=== PATIENT | male | born 1935 | race Caucasian/White ===

== ENCOUNTER 2020-09-02 21:57 | Inpatient (IN) | payer OTHER, SELFPAY ==
[~2020-09-02] VITALS: Ht 172.7 cm; Wt 87.5 kg
--- NOTE | 2020-09-02 22:00 | NUR ---
Placed in room 01 . Placed on ekg monitor tech, blood pressure machine and pulse oximeter. To gown for exam. Side rails up.
--- NOTE | 2020-09-02 22:00 | NUR ---
ER Dr. Black at bedside examining patient. Received patient to ER w/ c/o sob. Patient recently discharged from [facility] for similar c/o. Patient arrived via EMS w/ nrb noted pox of 100%. Introduced self to patient, positioned for comfort and safety w/ bed to low position sr up. continue to monitor. patient h/o ventricular paced pacemaker.
[2020-09-02 22:01] VITALS: BP_SYST 164
[2020-09-02] MEDS ORDERED: ALBU2.5V7 INH (22:19)
[2020-09-02] MEDS ORDERED: AMPI1VIA IJ (22:19)
[2020-09-02] MEDS ORDERED: WARF4TAB72 PO (22:19)
[2020-09-02] MEDS ORDERED: ASCO500C18 PO (22:19)
[2020-09-02] MEDS ORDERED: ROCPM1 IV (22:19)
--- NOTE | 2020-09-02 22:19 | NUR ---
Medication reconciliation completed with information provided by patient's family . Any prior medication reconciliation on file was reviewed and corrected.
[2020-09-02 22:48] LABS: BASOPHILS # (AUTO) 0.1 K/uL (0.0-0.2); BASOPHILS % (AUTO) 1.6 % (0.0-2.0); EOSINOPHILS % (AUTO) 0.7 % (0.0-4.0); HEMATOCRIT 30.8 % (36-54); HEMOGLOBIN 9.5 g/dL (14.0-18.0); LYMPHOCYTES # (AUTO) 0.5 K/uL (1.0-5.5); LYMPHOCYTES % (AUTO) 7.8 % (20.5-51.5); MEAN CORPUSCULAR HEMOGLOBIN 25 pg (27-31); MEAN CORPUSCULAR HGB CONC 31 % (32-36); MEAN CORPUSCULAR VOLUME 82 fL (79.0-98.0); MONOCYTES # (AUTO) 0.8 K/uL (0.0-1.0); MONOCYTES % (AUTO) 13.9 % (1.7-9.3); NEUTROPHILS # (AUTO) 4.7 K/uL (1.8-7.7); PLATELET COUNT (AUTO) 201 K/uL (130-430); RED BLOOD CELL COUNT(AUTO) 3.78 MIL/uL (4.2-6.2); RED CELL DISTRIBUTION WIDTH 17.7 % (9.0-15.0); WHITE BLOOD COUNT (AUTO) 6.1 K/uL (4.8-10.8)
[2020-09-02 23:03] LABS: ANION GAP 0 (5-15); CALCIUM 9.5 mg/dL (8.4-11.0); CHLORIDE 100 mmol/L (98-107); CREATININE 0.89 mg/dL (0.55-1.30); GLUCOSE 167 mg/dL (70-99); POTASSIUM 4.1 mmol/L (3.5-5.1); SODIUM SERUM 145 mmol/L (136-145); UREA NITROGEN, BLOOD 10 mg/dL (8-21)
[2020-09-02] MEDS ORDERED: cefTRIAXone 2 GM VIAL ONE (23:03)
--- NOTE | 2020-09-02 23:08 | NUR ---
patient medicated as ordered. Will observe for any adverse reaction. Bed to low position sr up, continue to monitor.
[2020-09-02 23:09] LABS: INR 1.5 (0.80-1.20); PROTHROMBIN TIME 15.6 SECS (9.5-12.5)
[2020-09-02 23:10] LABS: ALANINE AMINOTRANSFERASE 17 U/L (12-78); ALBUMIN 3.1 g/dL (3.4-4.8); ASPARTATE AMINOTRANSFERASE 18 U/L (10-37); LACTATE DEHYDROGENASE 178 U/L (85-227); TOTAL BILIRUBIN 0.5 mg/dL (0.0-1.0)
--- NOTE | 2020-09-02 23:25 | NUR ---
[facility] [phone]
[2020-09-03] VITALS (24 sets, daily range): BP systolic 107–183
--- NOTE | 2020-09-03 00:19 | NUR ---
Patient will be admitted to care of [facility]. Admitted to tele unit. Will go to room 122B. Belongings list completed. Complete and up to date summary report printed. SBAR report to be given at bedside with opportunity for questions.
[2020-09-03] MEDS ORDERED: ACETAMINOPHEN 325 MG TABLET PO PRN (00:30)
[2020-09-03] MEDS ORDERED: ALBUTEROL SULFATE 0.083% 2.5 MG/3 ML VIAL.NEB INH PRN ×2 (00:30→00:45)
[2020-09-03] MEDS ORDERED: NALOXONE HCL 0.4 MG/ML AMP (NARCAN) IVP PRN (00:30)
--- NOTE | 2020-09-03 00:35 | NUR ---
ADMISSION NOTE Received patient from ER via gurney. Patient admitted with diagnosis of PNA. Patient is awake, alert, oriented X 4. Patient oriented to hospital room, call light, toileting, pain management and safety-teach back done. Patient informed that KRISTIE will be nurse and that their room number is 122B. Personal belongings checked and Belongings List documented. Call light within reach.
--- NOTE | 2020-09-03 02:00 | NUR ---
TRANSFER: RECEIVED PT FROM [facility], REPORT GIVEN USING SBAR REPORT FROM RN. ALL CARE ASSUMED.
--- NOTE | 2020-09-03 02:00 | NUR ---
TRANSFERRED ICU, GIVEN REPORT TO ICU NURSE
[2020-09-03] MEDS ORDERED: AZITHROMYCIN 500 MG/VIAL (ZITHROMAX) IV ONE (03:20)
[2020-09-03] MEDS: AZITHROMYCIN 500 MG in NS 250 ML IV SCH (03:29)
--- NOTE | 2020-09-03 04:00 | NUR ---
BIPAP: PT PUT ON BIPAP PER DR ORDERS, PT TOLERATING WELL. WILL CONTINUE TO MONITOR.
--- NOTE | 2020-09-03 07:00 | NUR ---
CLOSING NOTE: REPORT GIVEN TO DAY SHIFT RN USING SBAR REPORTING.
--- NOTE | 2020-09-03 07:20 | NUR ---
LAB AT BEDSIDE: LAB AT BEDSIDE, PATIENT TOLERATING WELL. RESULTS PENDING.
--- NOTE | 2020-09-03 07:20 | NUR ---
OPENING NOTE: REPORT RCVD AT BEDSIDE VIA SBAR FORMAT, PATIENT IN NO ACUTE DISTRESS AND OR DISCOMFORT. ALL SAFETY PRECAUTIONS IN PLACE.
--- NOTE | 2020-09-03 07:32 | NUR ---
MD THOMAS: MD AT BEDSIDE, VERBAL REPORT GIVEN. ORDERS RC'VD TO WEAN BIPAP, RT AWARE.
--- NOTE | 2020-09-03 07:37 | NUR ---
NEW ORDERS FROM MD THOMAS: NEW ORDERS PLACED INTO EMAR BY MD, PATIENT EDUCATED ON CHANGES AND HAS VERBALIZED UNDERSTANDING.
[2020-09-03] MEDS ORDERED: *LOVENOX 1MG/KG Q12H/PHARMACY XX PRN (07:45)
[2020-09-03] MEDS: IPRATROPIUM/ALBUTEROL SULFATE 3 ML AMPUL.NEB (DUONEB) INH SCH ×5 (07:45→23:00)
[2020-09-03 08:03] LABS: INR 1.5 (0.80-1.20); PROTHROMBIN TIME 15.5 SECS (9.5-12.5)
[2020-09-03 08:11] LABS: BASOPHILS % (AUTO) 0.6 % (0.0-2.0); EOSINOPHILS % (AUTO) 0.9 % (0.0-4.0); HEMOGLOBIN 8.3 g/dL (14.0-18.0); LYMPHOCYTES # (AUTO) 0.6 K/uL (1.0-5.5); LYMPHOCYTES % (AUTO) 12.3 % (20.5-51.5); MEAN CORPUSCULAR HEMOGLOBIN 25 pg (27-31); MEAN CORPUSCULAR HGB CONC 31 % (32-36); MEAN CORPUSCULAR VOLUME 82 fL (79.0-98.0); MONOCYTES % (AUTO) 19.4 % (1.7-9.3); NEUTROPHILS # (AUTO) 3.5 K/uL (1.8-7.7); NEUTROPHILS % (AUTO) 66.8 % (40.0-70.0); PLATELET COUNT (AUTO) 166 K/uL (130-430); RED BLOOD CELL COUNT(AUTO) 3.28 MIL/uL (4.2-6.2); RED CELL DISTRIBUTION WIDTH 17.6 % (9.0-15.0); WHITE BLOOD COUNT (AUTO) 5.2 K/uL (4.8-10.8)
--- NOTE | 2020-09-03 08:12 | NUR ---
ABG RESULTS: SPOKE WITH MD THOMAS IN PERSON, MD AWARE OF ABG RESULTS, MD REQUESTED RT TO KEEP PATIENT ON BIPAP ALLOWING TIMES FOR REST TO EAT PO AND THEN PLACE BACK ONTO BIPAP.
--- NOTE | 2020-09-03 08:14 | NUR ---
RT: RT AWARE OF NEW ORDER FROM DR. THOMAS, WILL PLACE ORDER, PATIENT EDUCATED AND AWARE.
[2020-09-03 08:15] LABS: ALANINE AMINOTRANSFERASE 9 U/L (12-78); ALBUMIN 2.6 g/dL (3.4-4.8); ASPARTATE AMINOTRANSFERASE 13 U/L (10-37); CALCIUM 8.3 mg/dL (8.4-11.0); CHLORIDE 102 mmol/L (98-107); CREATININE 0.78 mg/dL (0.55-1.30); GLUCOSE 114 mg/dL (70-99); POTASSIUM 4.1 mmol/L (3.5-5.1); SODIUM SERUM 146 mmol/L (136-145); TOTAL BILIRUBIN 0.2 mg/dL (0.0-1.0); UREA NITROGEN, BLOOD 9 mg/dL (8-21)
[2020-09-03 08:19] LABS: ANION GAP < 3 (5-15)
--- NOTE | 2020-09-03 08:36 | NUR ---
0826 PT TAKEN OFF BIPAP PLACED ON 4L NC PER DR. DE LEON TO EAT.HR70 SAT 95%. Addendum: 09/03/20 at 0838 by Dinorah Schuler RT Amended: Links added.
--- NOTE | 2020-09-03 08:45 | NUR ---
FAMILY: DR. THOMAS SPOKE WITH DAUGHTER WINIFRED OVER PHONE, UPDATE GIVEN AND ALL QUESTIONS ANSWERED.
[2020-09-03] MEDS ORDERED: WARFARIN SODIUM 4 MG TABLET PO SCH (09:00)
--- NOTE | 2020-09-03 09:35 | NUR ---
BREAKFAST: PATIENT HAS GOOD APPETITE, 50% PO CONSUMED. PATIENT REMAINS ELEVATED IN BED FOR COMFORT, WATCHING TV. DENIES PAIN AND OR DISCOMFORT AT THIS TIME. ALL SAFETY PRECAUTIONS IN PLACE.
--- NOTE | 2020-09-03 09:36 | NUR ---
Nutrition Update Villa Scale 15 noted. Pt admitted for SOB, pneumonia. Diet: cardiac BMI: 29.4 kg/m2 RD to follow per nutrition care standards.
--- NOTE | 2020-09-03 09:45 | NUR ---
DR. WRIGHT: KYLE AT BEDSIDE, VERBAL REPORT GIVEN.
[2020-09-03] MEDS: methylPREDNISolone SOD SUCC/PF 62.5 MG/ML VIAL IVP SCH ×2 (09:48→21:15)
[2020-09-03] MEDS ORDERED: FUROSEMIDE 20 MG/2 ML VIAL ONE (09:53)
[2020-09-03] MEDS: FUROSEMIDE 20 MG/2 ML VIAL IVP SCH (09:54)
[2020-09-03] MEDS: ENOXAPARIN SODIUM 80 MG/0.8 ML SYRINGE SUBCUT SCH ×2 (09:57→21:15)
--- NOTE | 2020-09-03 10:01 | NUR ---
DR. WRIGHT CALLED FAMILY: CALLED DAUGHTER WINIFRED AND VERBAL UPDATE GIVEN. ALL QUESTIONS ANSWERED
--- NOTE | 2020-09-03 10:19 | NUR ---
Carmel Goldsmith aware of consult
--- NOTE | 2020-09-03 10:20 | NUR ---
Called Dr. Linder with a consult, spoke with Claire from doctors office
--- NOTE | 2020-09-03 11:18 | NUR ---
DAUGHTER (DEWAYNE) DAUGHTER CALLED UNIT AND VERBALIZED SHE HAS THE PATIENTS DPOA DOCUMENTATION AND HAS ALSO REQUESTED THE PHYSICIANS CALL HER TO DISCUSS CODE STATUS. PER DEWAYNE, PATIENT VERBALIZED PRIOR TO BEING ADMITTED HE REQUESTS TO BE DNR STATUS. WILL MAKE MD AWARE.
--- NOTE | 2020-09-03 12:02 | NUR ---
RN ROUNDS: NEW LINENS PLACED, NEW GOWN, PATIENT HAD LARGE INCONTINENCE VOID WITH MED BM. CALL LIGHT IN REACH DEMONSTRATED USE, PATIENT DEMONSTRATED PROPER USE OF CALL LIGHT SYSTEM. ALL SAFETY PRECAUTIONS IN PLACE, BED IN LOWEST LOCKED POSITION.
--- NOTE | 2020-09-03 12:15 | NUR ---
DR. NOVA: AT BEDSIDE, VERBAL REPORT GIVEN, ALL QUESTIONS ANSWERED.
--- NOTE | 2020-09-03 12:24 | NUR ---
BRIDGE DESIGN ENGINEER CONVERSATION: SPOKE WITH BRIDGE DESIGN ENGINEER R/T OBTAINING PATIENTS ADVANCE DIRECTIVE, PATIENTS DAUGHTER (DEWAYNE) STATES PATIENT HAS ONE. BRIDGE DESIGN ENGINEER TO REACH OUT TO FAMILY TO DETERMINE FACTS.
--- NOTE | 2020-09-03 12:45 | NUR ---
DR. NOVA SIGNED DNR: DNR HAS BEEN SIGNED, DR. NOVA HAS SPOKEN TO FAMILY AND DISCUSSED, PER DAUGHTERS WINIFRED AND DEWAYNE BOTH HAVE AGREED TO CODE STATUS CHANGE. CHARGE AWARE.
--- NOTE | 2020-09-03 13:27 | NUR ---
SS notes/Advanced Directive: SIDE DOOR MAN received a call from Lena POLANCO regarding pt's surrogate decision maker/advanced directive. SIDE DOOR MAN phoned pt's dtr Margaret who stated that patient has an advanced directive and pt's spouse, Sara Butt (p:[phone]) is the surrogate decision maker. SIDE DOOR MAN informed Margaret that RN's received a call from pt's other dtr Venecia (p:[phone]) claiming that she is pt's POA. Per Margaret, she will try to obtain both and provide the hospital with copies. Per Margaret, they are in a good relationship amongst each other and should be in the same page when it comes to decision making. Per Margaret, Sara has slight dementia and Margaret is the spokesperson for the family. Demographic info and Lena POLANCO updated.
--- NOTE | 2020-09-03 15:29 | NUR ---
FAMILY: DEWAYNE CALLED UNIT, VERBAL UPDATE GIVEN, ALL QUESTIONS ANSWERED, NO CONCERNS AT THIS TIME.
--- NOTE | 2020-09-03 17:00 | NUR ---
POA: FAMILY DROPPED OFF COPY OF POA, PLACED INTO CHART. CHARGE AWARE.
--- NOTE | 2020-09-03 17:30 | NUR ---
DINNER CONSUMED: PATIENT CONSUMED 100%OF DINNER PO, NO SIGNS OF ASPIRATION. HOB REMAINS ELEVATED, PATIENT CALM AND WATCHING TC. DENIES PAIN AND OR DISCOMFORT.
--- NOTE | 2020-09-03 19:19 | NUR ---
CLOSING NOTE: REPORT GIVEN VIA SBAR FORMAT TO ONCOMING RN. ALL CARES ENDORSED.
[2020-09-03] MEDS: DEXTROSE IV SCH (23:00)
[2020-09-03] MEDS: CEFTRIAXONE SOD IV SCH (23:00)
[2020-09-03] MEDS ORDERED: cefTRIAXone 1 GM IVPB PREMIX 50 ML IV SCH (23:00)
[2020-09-03] MEDS ORDERED: cefTRIAXone 2 GM IVPB PREMIX 50 ML IV SCH (23:00)
[2020-09-04] VITALS (14 sets, daily range): BP systolic 136–169
[2020-09-04] MEDS: AZITHROMYCIN 500 MG in NS 250 ML IV SCH (01:14)
[2020-09-04] MEDS: IPRATROPIUM/ALBUTEROL SULFATE 3 ML AMPUL.NEB (DUONEB) INH SCH ×6 (03:00→23:40)
[2020-09-04 06:42] LABS: BASOPHILS % (AUTO) 0.1 % (0.0-2.0); HEMATOCRIT 26.6 % (36-54); HEMOGLOBIN 8.3 g/dL (14.0-18.0); LYMPHOCYTES # (AUTO) 0.3 K/uL (1.0-5.5); LYMPHOCYTES % (AUTO) 11.6 % (20.5-51.5); MEAN CORPUSCULAR HEMOGLOBIN 26 pg (27-31); MEAN CORPUSCULAR HGB CONC 31 % (32-36); MEAN CORPUSCULAR VOLUME 82 fL (79.0-98.0); MONOCYTES # (AUTO) 0.1 K/uL (0.0-1.0); NEUTROPHILS # (AUTO) 2.1 K/uL (1.8-7.7); NEUTROPHILS % (AUTO) 83.3 % (40.0-70.0); PLATELET COUNT (AUTO) 176 K/uL (130-430); RED BLOOD CELL COUNT(AUTO) 3.25 MIL/uL (4.2-6.2); RED CELL DISTRIBUTION WIDTH 17.8 % (9.0-15.0); WHITE BLOOD COUNT (AUTO) 2.5 K/uL (4.8-10.8)
[2020-09-04 07:01] LABS: ALANINE AMINOTRANSFERASE 13 U/L (12-78); ALBUMIN 2.8 g/dL (3.4-4.8); ASPARTATE AMINOTRANSFERASE 12 U/L (10-37); CALCIUM 8.4 mg/dL (8.4-11.0); CHLORIDE 102 mmol/L (98-107); CREATININE 0.76 mg/dL (0.55-1.30); GLUCOSE 173 mg/dL (70-99); POTASSIUM 4.5 mmol/L (3.5-5.1); SODIUM SERUM 143 mmol/L (136-145); TOTAL BILIRUBIN 0.4 mg/dL (0.0-1.0); UREA NITROGEN, BLOOD 9 mg/dL (8-21)
--- NOTE | 2020-09-04 07:30 | NUR ---
Received patient and report from lieutenant shift supervisor. Patient in bed with side rails x 3 up. Call light with in reach.
[2020-09-04 07:41] LABS: ANION GAP < 3 (5-15)
[2020-09-04] MEDS ORDERED: FUROSEMIDE 20 MG/2 ML VIAL ONE (09:18)
[2020-09-04] MEDS: FUROSEMIDE 20 MG/2 ML VIAL IVP SCH (09:26)
[2020-09-04] MEDS: ENOXAPARIN SODIUM 80 MG/0.8 ML SYRINGE SUBCUT SCH ×2 (09:27→21:34)
[2020-09-04] MEDS: methylPREDNISolone SOD SUCC/PF 62.5 MG/ML VIAL IVP SCH ×2 (09:27→21:32)
[2020-09-04] MEDS: MORPHINE 2 MG/ML INJ. SYRINGE IVP PRN ×2 (09:28→14:23)
--- NOTE | 2020-09-04 09:30 | NUR ---
Paged MD Martinez and reported latest ABGs and critical lab result Carbon dioxide 43, ordered for patient to stay on nasal cannula during the day but keep bipap on at night. Also reported patient has had difficulty urinating with history of prostate issues and stating "feels like peeing marbles." MD Martinez approved Borja catheter insertion.
--- NOTE | 2020-09-04 09:52 | NUR ---
Bladder scan result 45 ml. No distended or firm abdomen noted.
--- NOTE | 2020-09-04 10:41 | NUR ---
CISNEROS 16 fr cisneros cath inserted. Pt tolerated well. 200ml clear yellow urine noted.
--- NOTE | 2020-09-04 11:01 | NUR ---
MD Khan at bedside assessing patient, stated will put orders for patient to transfer to tele unit.
--- NOTE | 2020-09-04 13:13 | NUR ---
Called MD Linder and reported systolic has ranged in the 150s to 160s with last blood pressure 153/70, no new orders.
--- NOTE | 2020-09-04 15:45 | NUR ---
Received report from SHERRI German (ICU) for continuity of care
--- NOTE | 2020-09-04 15:53 | NUR ---
Patient transferred to room 122 A via bed in tele unit with assistance from RT on 2 Liters Nasal Cannula. Patient placed on tele unit's portable continuos tele monitoring. Report and patient with personal belongings endorsed to [facility] nurse. Daughter Margaret made aware of transfer. Endorsed to receiving nurse to request stool softener as patient is stating its hard to go even though patient had two bowel movements today.
--- NOTE | 2020-09-04 15:55 | NUR ---
Opening Notes Patient is awake, alert and oriented x4. No resp distress noted. Pt is noted with minimal abdominal breathing at this time. Pt remains on continuous oxygen via NC @ 2 LPM, tolerating well at this time. Pt denies any cough or SOB at this time. Pt denies any pain. IV site noted on left hand, 20 gauge intact. PICC LINE on GRACE, dressing clean and dry, flushing well. Borja catheter in place at this time, draining by gravity. Pt is noted with minimal bleeding at FC insertion site. Pt was oriented to the room and taught proper use of the call light. Pt was successful in return demonstration of call light. All needs met at this time. Safety and fall precautions in place. Bed in lowest position, alarm on, locked. Will continue to monitor.
--- NOTE | 2020-09-04 16:34 | NUR ---
Venecia (daughter/DPOA) called and requested to talk to MD Martinez, informed MD Martinez already did rounds and will endorse to have MD Martinez call Venecia tomorrow. Endorsed to [facility] nurse to endorse to have MD Martinez call daughter Venecia ([phone]) once arrives on site.
--- NOTE | 2020-09-04 19:30 | NUR ---
OPENING NOTE: Received report from dayshift nurse. Patient is laying in bed, alert and oriented and is not having any s/s of distress or discomfort. Borja is draining to gravity with yellow urine. PICC line noted on GRACE and IV on left wrist with dry and intact dressing Patient is on 2L O2 via NC, tolerating well and with normal breathing pattern. Ensured all safety precautions. Bed is locked and in the lowest positions. Call light within reach.
--- NOTE | 2020-09-04 21:30 | NUR ---
MEDICATION ADMINISTRATION: Patient is resting in bed, in stable condition. Medications were administered as ordered by , pt tolerated well.
[2020-09-05] MEDS: CEFTRIAXONE SOD IV SCH ×2 (00:13→22:10)
[2020-09-05] MEDS: DEXTROSE IV SCH ×2 (00:13→22:10)
[2020-09-05] MEDS: AZITHROMYCIN 500 MG in NS 250 ML IV SCH (01:02)
[2020-09-05 01:06] VITALS: BP_SYST 166
--- NOTE | 2020-09-05 01:45 | NUR ---
PAGED DR. LINDER FOR ELEVATED BP AND DECREASED HR I informed MD that pt's BP has been 160/85 and 166/80 with recent decrease in HR in the 50's but some episodes of HR in the 40's. Per Dr. Linder will wait until morning to assess patient. No change in orders at this time.
[2020-09-05] MEDS: IPRATROPIUM/ALBUTEROL SULFATE 3 ML AMPUL.NEB (DUONEB) INH SCH ×6 (03:00→19:37)
--- NOTE | 2020-09-05 03:25 | NUR ---
RN ROUNDS: Patient is laying in bed and appears to be asleep with no s/s of distress or discomfort. Will continue to monitor patient.
--- NOTE | 2020-09-05 07:50 | NUR ---
CLOSING NOTES: Patient is laying in bed, alert and oriented and in stable condition. Borja is draining to gravity with yellow urine. PICC line on GRACE with dry dressing and IV on left wrist with dry and intact dressing. Patient is on 2L O2 via NC, tolerating well and with normal breathing pattern. Ensured all safety precautions. Bed is locked and in the lowest positions. Call light within reach. All needs were met throughout shift. Endorsed to dayshift nurse.
[2020-09-05 08:00] VITALS: BP_SYST 176
--- NOTE | 2020-09-05 08:00 | NUR ---
Opening note: Pt awake, alert and verbally responsive. AOx4. Denies pain or discomfort, no acute distress noted. Asked to have his bipap taken off, RT came and took bipap off and put him on 2L NC. Respirations even and unlabored. IV L hand 20g and PICC GRACE, both intact, no redness or swelling noted. Borja intact, draining to gravity. Bed in low position, call light within reach, bed alarm on, WCTM.
[2020-09-05] MEDS ORDERED: FUROSEMIDE 20 MG/2 ML VIAL ONE (08:19)
[2020-09-05] MEDS: methylPREDNISolone SOD SUCC/PF 62.5 MG/ML VIAL IVP SCH ×2 (08:31→20:49)
[2020-09-05] MEDS: FUROSEMIDE 20 MG/2 ML VIAL IVP SCH (08:32)
[2020-09-05] MEDS: ENOXAPARIN SODIUM 80 MG/0.8 ML SYRINGE SUBCUT SCH ×2 (08:33→20:55)
--- NOTE | 2020-09-05 10:00 | NUR ---
Informed Dr. Marcano of pt having high BP. He said after 1600 vitals to call if SBP is over 150.
[2020-09-05 11:07] VITALS: BP_SYST 146
--- NOTE | 2020-09-05 12:41 | NUR ---
CM note: faxed DC to snf order to [facility]/[employer] fax # [phone]
[2020-09-05 16:00] VITALS: BP_SYST 183
[2020-09-05] MEDS ORDERED: HYDROCHLOROTHIAZIDE 25 MG TABLET (HCTZ) PO ONE (16:15)
--- NOTE | 2020-09-05 16:17 | NUR ---
Called Dr. Marcano to inform him pt BP is 183/110, he ordered medications. Will carry out orders.
--- NOTE | 2020-09-05 16:21 | NUR ---
P.T. NOTES P.T. EVAL COMPLETED; REFER TO EVAL FOR DETAILS; O2 SAT ROOM AIR=80s, 2L=89-90% W/ EXERTION, 97% AT REST.
[2020-09-05] MEDS ORDERED: cloNIDine HCL 0.1 MG TABLET ONE ×2 (16:24→22:56)
[2020-09-05] MEDS: cloNIDine HCL 0.1 MG TABLET PO PRN ×2 (16:26→22:56)
--- NOTE | 2020-09-05 19:10 | NUR ---
OPENING NOTES PATIENT RESTING, NO SIGNS OF ACUTE RESPIRATORY DISTRESS NOTED. IV SITE PATENT, DRESSINGS C/D/I. FALL, ASPIRATION, SAFETY, AND RESPIRATORY PRECAUTIONS IN PLACE. CALL LIGHT WITHIN REACH, PATIENT DEMONSTRATES PROPER USAGE OF CALL LIGHT. PLAN OF CARE DISCUSSED WITH PATIENT. ALVAREZ CATHETER INTACT, NO KINKS, NO LOOPS, BAG NOT TOUCHING THE FLOOR. WILL CONTINUE TO MONITOR.
[2020-09-05 20:00] VITALS: BP_SYST 164
[2020-09-06] VITALS: BP_SYST 156
[2020-09-06] MEDS: IPRATROPIUM/ALBUTEROL SULFATE 3 ML AMPUL.NEB (DUONEB) INH SCH ×7 (00:03→23:47)
[2020-09-06] MEDS: AZITHROMYCIN 500 MG in NS 250 ML IV SCH ×2 (00:37→23:33)
--- NOTE | 2020-09-06 01:51 | NUR ---
PATIENT CONNECTED TO BIPAP, NO RESPIRATORY DISTRESS NOTED. WILL CONTINUE TO MONITOR.
[2020-09-06 06:20] LABS: HEMATOCRIT 27.2 % (36-54); HEMOGLOBIN 8.6 g/dL (14.0-18.0); LYMPHOCYTES # (AUTO) 0.3 K/uL (1.0-5.5); LYMPHOCYTES % (AUTO) 6.4 % (20.5-51.5); MEAN CORPUSCULAR HEMOGLOBIN 26 pg (27-31); MEAN CORPUSCULAR HGB CONC 32 % (32-36); MEAN CORPUSCULAR VOLUME 81 fL (79.0-98.0); MONOCYTES # (AUTO) 0.4 K/uL (0.0-1.0); MONOCYTES % (AUTO) 9.3 % (1.7-9.3); NEUTROPHILS # (AUTO) 3.7 K/uL (1.8-7.7); NEUTROPHILS % (AUTO) 84.3 % (40.0-70.0); PLATELET COUNT (AUTO) 180 K/uL (130-430); RED BLOOD CELL COUNT(AUTO) 3.37 MIL/uL (4.2-6.2); RED CELL DISTRIBUTION WIDTH 18.2 % (9.0-15.0); WHITE BLOOD COUNT (AUTO) 4.4 K/uL (4.8-10.8)
--- NOTE | 2020-09-06 06:45 | NUR ---
CLOSING NOTES PATIENT RESTING, NO SIGNS OF ACUTE RESPIRATORY DISTRESS NOTED. IV SITES PATENT, DRESSINGS C/D/I. FALL, ASPIRATION, SAFETY, AND RESPIRATORY PRECAUTIONS IN PLACE THROUGHOUT SHIFT. CALL LIGHT WITHIN REACH, BED ALARM ON, BED AT LOWEST POSITION, BED LOCKED, ALVAREZ CATHETER PATENT, NO KINKS, NO LOOPS, BAG NOT TOUCHING THE FLOOR. ALL NEEDS MET THROUGHOUT SHIFT. WILL ENDORSE CARE TO ONCOMING SHIFT.
[2020-09-06 07:10] LABS: ANION GAP 0 (5-15); CALCIUM 8.5 mg/dL (8.4-11.0); CHLORIDE 98 mmol/L (98-107); CREATININE 0.77 mg/dL (0.55-1.30); GLUCOSE 211 mg/dL (70-99); POTASSIUM 4.4 mmol/L (3.5-5.1); SODIUM SERUM 137 mmol/L (136-145); UREA NITROGEN, BLOOD 14 mg/dL (8-21)
[2020-09-06 08:00] VITALS: BP_SYST 161
--- NOTE | 2020-09-06 08:00 | NUR ---
Opening note: Pt awake, alert and verbally responsive. AOx4. Denies pain or discomfort, no acute distress noted. Respirations even and unlabored on NC 2L. IV L hand and PICC GRACE intact, no redness or swelling noted. Borja intact and draining to gravity. Bed in low position, call light within reach, WCTM.
[2020-09-06 08:07] LABS: C-REACTIVE PROTEIN QUANT 0.9 mg/dL (0-0.5)
[2020-09-06 08:27] LABS: ERYTHROCYTE SEDIMENTATION RATE 12 MM/HR (0-15)
[2020-09-06] MEDS ORDERED: FUROSEMIDE 20 MG/2 ML VIAL ONE (09:11)
[2020-09-06] MEDS: HYDROCHLOROTHIAZIDE 25 MG TABLET (HCTZ) PO SCH (09:15)
[2020-09-06] MEDS: methylPREDNISolone SOD SUCC/PF 62.5 MG/ML VIAL IVP SCH ×2 (09:15→20:15)
[2020-09-06] MEDS: FUROSEMIDE 20 MG/2 ML VIAL IVP SCH (09:16)
[2020-09-06] MEDS: ENOXAPARIN SODIUM 80 MG/0.8 ML SYRINGE SUBCUT SCH ×2 (09:18→20:14)
[2020-09-06 12:57] VITALS: BP_SYST 155
--- NOTE | 2020-09-06 13:31 | NUR ---
CM note: faxed the dc to [facility] order to [facility] fax # [phone].
[2020-09-06 17:10] VITALS: BP_SYST 121
[2020-09-06 19:20] VITALS: BP_SYST 148
--- NOTE | 2020-09-06 19:20 | NUR ---
INITIAL NOTE PATIENT IS STABLE AND LAYING IN BED. NO S/S OF RESPIRATORY DISTRESS NOTED. CALL LIGHT IN REACH. PATIENT SUCCESSFULLY DEMONSTRATES USAGE OF CALL LIGHT. BED IS LOCKED ALARMED, AND AT THE LOWEST POSITION. FALL, SAFETY, ASPIRATION, AND RESPIRATORY PRECAUTIONS WILL BE IN PLACE THROUGHOUT THE SHIFT. PLAN OF CARE IS DISCUSSED WITH PATIENT.
[2020-09-06] MEDS ORDERED: cloNIDine HCL 0.1 MG TABLET ONE (20:12)
[2020-09-06] MEDS: cloNIDine HCL 0.1 MG TABLET PO PRN (20:14)
[2020-09-06] MEDS: CEFTRIAXONE SOD IV SCH (22:17)
[2020-09-06] MEDS: DEXTROSE IV SCH (22:17)
--- NOTE | 2020-09-07 00:14 | NUR ---
Paged Dr. Nieto [phone], s/w Ambreen
[2020-09-07 00:15] VITALS: BP_SYST 167
--- NOTE | 2020-09-07 00:18 | NUR ---
COMMUNICATED WITH DR. MALDONADO ABOUT HIGH BLOOD PRESSURE 167/54. ORDERS RECEIVED WILL FOLLOW THROUGH.
[2020-09-07] MEDS ORDERED: hydrALAZINE HCL 25 MG TABLET ONE (00:25)
[2020-09-07] MEDS ORDERED: hydrALAZINE HCL 25 MG TABLET PO ONE (00:30)
[2020-09-07] MEDS: IPRATROPIUM/ALBUTEROL SULFATE 3 ML AMPUL.NEB (DUONEB) INH SCH ×4 (03:35→19:00)
[2020-09-07 06:38] LABS: BASOPHILS % (AUTO) 0.2 % (0.0-2.0); HEMATOCRIT 31.2 % (36-54); HEMOGLOBIN 9.8 g/dL (14.0-18.0); LYMPHOCYTES # (AUTO) 0.4 K/uL (1.0-5.5); LYMPHOCYTES % (AUTO) 6.6 % (20.5-51.5); MEAN CORPUSCULAR HEMOGLOBIN 25 pg (27-31); MEAN CORPUSCULAR HGB CONC 31 % (32-36); MEAN CORPUSCULAR VOLUME 81 fL (79.0-98.0); MONOCYTES # (AUTO) 0.7 K/uL (0.0-1.0); MONOCYTES % (AUTO) 12.5 % (1.7-9.3); NEUTROPHILS # (AUTO) 4.5 K/uL (1.8-7.7); NEUTROPHILS % (AUTO) 80.7 % (40.0-70.0); PLATELET COUNT (AUTO) 204 K/uL (130-430); RED BLOOD CELL COUNT(AUTO) 3.87 MIL/uL (4.2-6.2); RED CELL DISTRIBUTION WIDTH 19.2 % (9.0-15.0); WHITE BLOOD COUNT (AUTO) 5.5 K/uL (4.8-10.8)
[2020-09-07 07:08] LABS: ALANINE AMINOTRANSFERASE 35 U/L (12-78); ALBUMIN 2.8 g/dL (3.4-4.8); ASPARTATE AMINOTRANSFERASE 28 U/L (10-37); CALCIUM 8.6 mg/dL (8.4-11.0); CHLORIDE 95 mmol/L (98-107); CREATININE 0.82 mg/dL (0.55-1.30); GLUCOSE 240 mg/dL (70-99); POTASSIUM 4.3 mmol/L (3.5-5.1); TOTAL BILIRUBIN 0.3 mg/dL (0.0-1.0); UREA NITROGEN, BLOOD 19 mg/dL (8-21)
--- NOTE | 2020-09-07 07:19 | NUR ---
CLOSING NOTE PATIENT IS STABLE AND LAYING IN BED. NO S/S OF RESPIRATORY DISTRESS NOTED. CALL LIGHT IN REACH. BED IS LOCKED, ALARMED, AND AT THE LOWEST POSITION. FALL, SAFETY, ASPIRATION, AND RESPIRATORY PRECAUTIONS HAS BEEN IN PLACE THROUGHOUT THE SHIFT. SBAR REPORT ENDORSED TO AM NURSE.
--- NOTE | 2020-09-07 07:45 | NUR ---
OPENING PT IS LYING IN BED. PT HAS A ALVAREZ CATH FREELY FLOWING TO BEDSIDE DRAINAGE. PT HAS OXYGEN AT 2L NC. PT HAS PICC LINE TO RIGHT UA AND IV SL TO LEFT FOREARM. PT GETS IV ABX. PT IS AWAITING FOR PLACEMENT FOR LTAC. PT STATES THAT HE HAD BEEN IN [place] FOR 5 WEEKS PER PT AND WENT HOME AND CAME TO ER IN THE SAME DAY AFTER DISCHARGE. PT STATES THAT HE WALKED IN HIS HOME BUT NOT WELL. INFORMED PT ON USING CALL LIGHT FOR ALL NEEDS. PT HAS NO PAIN NOTED OR ACUTE DISTRESS NOTED.
[2020-09-07 07:55] LABS: ANION GAP 4 (5-15); SODIUM SERUM 137 mmol/L (136-145)
[2020-09-07 08:00] VITALS: BP_SYST 143
[2020-09-07 08:08] LABS: ERYTHROCYTE SEDIMENTATION RATE 7 MM/HR (0-15)
[2020-09-07 08:31] LABS: C-REACTIVE PROTEIN QUANT 0.5 mg/dL (0-0.5)
[2020-09-07] MEDS: methylPREDNISolone SOD SUCC/PF 62.5 MG/ML VIAL IVP SCH (08:39)
[2020-09-07] MEDS: HYDROCHLOROTHIAZIDE 25 MG TABLET (HCTZ) PO SCH (08:40)
[2020-09-07] MEDS: FUROSEMIDE 20 MG/2 ML VIAL IVP SCH (08:40)
[2020-09-07] MEDS ORDERED: FUROSEMIDE 20 MG/2 ML VIAL ONE (08:42)
[2020-09-07] MEDS: ENOXAPARIN SODIUM 80 MG/0.8 ML SYRINGE SUBCUT SCH (08:46)
--- NOTE | 2020-09-07 11:31 | NUR ---
fc Borja cath removed as ordered pt tolerated well
[2020-09-07 11:50] VITALS: BP_SYST 157
[2020-09-07] MEDS ORDERED: WARFARIN SODIUM 4 MG TABLET PO ONE (12:00)
--- NOTE | 2020-09-07 12:49 | NUR ---
Dietitian Recommendations *[facility] Cardiac diet w/ Glucerna BID. ONS will provide 440 kcal and 20gm protein daily. Please see Nutritional Assessment for details. TASH VIGIL Addendum: 09/07/20 at [address] Correction: Recommend: [facility] Cardiac diet w/ Glucerna BID. TASH VIGIL
--- NOTE | 2020-09-07 13:20 | NUR ---
Received a telephone call from Joslyn Pina at [facility]. She asked me to put a note in patient's chart-Patient will DC to [facility] after 7PM today. Room 312A-number for report [phone]. Ambulance transport by [facility] .
--- NOTE | 2020-09-07 13:20 | NUR ---
ARRANGED CENTER MACHINE OPERATOR TRANSPORT TO [facility], [place], RM 312A, JOURNALIST TIME IS 1900. SPOKE TO STEPAN. Addendum: 09/07/20 at 1324 by Jayla Ramon AK/ NAME OF AMBULANCE: [facility] , AUTHORIZATION # [id number]
[2020-09-07] MEDS ORDERED: cloNIDine HCL 0.1 MG TABLET ONE (14:57)
[2020-09-07 16:15] VITALS: BP_SYST 173
[2020-09-07 17:03] VITALS: BP_SYST 146
--- NOTE | 2020-09-07 17:09 | NUR ---
Dr. Erin albert need med rec completed for discharge to [facility]
--- NOTE | 2020-09-07 17:10 | NUR ---
SYLVIA ATTENDING MD DR WRIGHT FOR MEDICATION RECONCILIATION FOR PT GOING TO [facility], [facility]. SPOKE TO IRVIN.
--- NOTE | 2020-09-07 17:45 | NUR ---
MEDICATIONS DR. WRIGHT RETURNED CALL AND STATED TO CONT ALL HOSPITAL MEDICATIONS.
[2020-09-07] MEDS ORDERED: WARFARIN SODIUM 4 MG TABLET PO SCH (18:00)
--- NOTE | 2020-09-07 18:22 | NUR ---
CLOSING PT IS LYING IN BED AT THIS TIME. PT IS AWAITING TRANSFER TO [facility]. PT IS A&O X 3. AT TIMES PT SEEMS CONFUSED. PT IS USING HIS URINAL FREELY BUT IF HE CANNOT LOCATE URINAL HE WILL HAVE INCONT EPISODE. PT BEGAN WARFARIN 4 MG TODAY WITH INR 1.5. PT FAMILY IS AWARE OF DISCHARGE AND POC. QUESTIONS REGARDING FINANCES AND PLACEMENT FROM FAMILY HAVE BEEN DIRECTED TO SHIPWRIGHT HELPER AND SAFETY ANALYST. ALL NEEDS MET. PT HAS A PILE DRIVER OPERATOR BARGE MOUNTED TIME OF 1900. REPORT HAS BEEN GIVEN TO [facility] AT [facility]. THEY STATED TO KEEP PICC AND IV DUE TO IV ABX. INFORMED OF PT HAVING A PACEMAKER AND PER NIGHTSHIFT RN PT DOES HAVE BRADYCARDIA AT HS BUT RECOVERS FAST WITH PACEMAKER. NO C/O PAIN OR S/S OF ACUTE DISTRESS NOTED.
--- NOTE | 2020-09-07 20:13 | NUR ---
D/C Patient Patient given medication reconciliation form and D/C instructions. Exit Care provided. Patient verbalized understanding. Patient discharge to [facility]. Patient in stable condition, ID band removed.Tele monitor removed.Patient educated on pain management.All belongings sent with patient.
== END 2020-09-07 20:13 | DRG 871 ==
LOC: SED 21:57 → STU 23:30 → SIC 09-03 01:15 → STU 09-04 15:49
PROVIDERS: ADMIT Internal Medicine; ATTEND Internal Medicine
PROC: 5A09457 Assistance with Respiratory Ventilation, 24-96 Consecutive Hours, Continuous Positive Airway Pressure (ICD-10-PCS; principal; 2020-09-03)
PROC: 5A09357 Assistance with Respiratory Ventilation, Less than 24 Consecutive Hours, Continuous Positive Airway Pressure (ICD-10-PCS; 2020-09-04)
PROC: 5A09457 Assistance with Respiratory Ventilation, 24-96 Consecutive Hours, Continuous Positive Airway Pressure (ICD-10-PCS; 2020-09-06)
DX: A41.9 Sepsis, unspecified organism (principal); J18.9 Pneumonia, unspecified organism; J96.21 Acute and chronic respiratory failure with hypoxia; J96.22 Acute and chronic respiratory failure with hypercapnia; E43 Unspecified severe protein-calorie malnutrition; J44.1 Chronic obstructive pulmonary disease with (acute) exacerbation; I42.9 Cardiomyopathy, unspecified; I48.21 Permanent atrial fibrillation; J44.0 Chronic obstructive pulmonary disease with (acute) lower respiratory infection; G93.1 Anoxic brain damage, not elsewhere classified; I25.10 Atherosclerotic heart disease of native coronary artery without angina pectoris; Z20.822 Contact with and (suspected) exposure to COVID-19; Z66 Do not resuscitate; D72.819 Decreased white blood cell count, unspecified; E88.09 Other disorders of plasma-protein metabolism, not elsewhere classified; E11.65 Type 2 diabetes mellitus with hyperglycemia; R53.81 Other malaise; D64.9 Anemia, unspecified; E78.5 Hyperlipidemia, unspecified; R79.1 Abnormal coagulation profile; I11.0 Hypertensive heart disease with heart failure; I50.9 Heart failure, unspecified; Z79.01 Long term (current) use of anticoagulants; Z87.01 Personal history of pneumonia (recurrent); Z87.891 Personal history of nicotine dependence; Z95.0 Presence of cardiac pacemaker; Z68.29 Body mass index [BMI] 29.0-29.9, adult
CPT/HCPCS: 36415; 36600; 71045; 80048; 80053; 82550-TC; 82728; 82803-TC; 82962; 83605; 83615-TC; 83880; 84484; 85025; 85379; 85384-TC; 85610-TC; 85651-TC; 85730-TC; 86140; 87040-TC; 87081; 93005; 94640; 94660; 94760; 96365; 97110-GP; 97112-GP; 97116-GP; 97530-GP; G0378; J0456; J0696; J1650; J1940; J2270; J2930; J7050; U0003

== ENCOUNTER 2021-05-17 14:05 | Inpatient (IN) | payer OTHER, SELFPAY ==
[~2021-05-17] VITALS: Ht 172.7 cm; Wt 95.7 kg
[~2021-05-17 14:05] MED LIST: ALBU2.5V7 INH; AMPI1VIA IJ; ASCO500C18 PO; ROCPM1 IV; WARF4TAB72 PO
[2021-05-17 14:24] VITALS: BP_SYST 173
[2021-05-17] MEDS ORDERED: ASPIRIN 81 MG TAB.CHEW PO ONE (15:15)
[2021-05-17] MEDS ORDERED: DOXA2TAB PO (15:46)
[2021-05-17] MEDS ORDERED: MULT400T7 PO (15:46)
[2021-05-17] MEDS ORDERED: FINA5TAB3 PO (15:46)
[2021-05-17] MEDS ORDERED: METF-518 PO (15:46)
[2021-05-17] MEDS ORDERED: WARF3TAB59 PO (15:46)
[2021-05-17] MEDS ORDERED: FURO-150 PO (15:46)
[2021-05-17] MEDS ORDERED: TAMS-11 PO (15:46)
[2021-05-17] MEDS ORDERED: ASCO500T20 PO (15:46)
[2021-05-17] MEDS ORDERED: CARV25TA55 PO (15:46)
[2021-05-17] MEDS ORDERED: AMIO100T4 PO (15:46)
[2021-05-17] MEDS ORDERED: LOVA20TA2 PO (15:46)
[2021-05-17] MEDS ORDERED: POTA20TA83 PO (15:46)
[2021-05-17] MEDS ORDERED: LOSA100T3 PO (15:46)
[2021-05-17 15:51] LABS: BASOPHILS % (AUTO) 0.1 % (0.0-2.0); EOSINOPHILS % (AUTO) 0.2 % (0.0-4.0); HEMATOCRIT 38.1 % (36-54); HEMOGLOBIN 12.2 g/dL (14.0-18.0); LYMPHOCYTES # (AUTO) 0.5 K/uL (1.0-5.5); LYMPHOCYTES % (AUTO) 6.3 % (20.5-51.5); MEAN CORPUSCULAR HEMOGLOBIN 26 pg (27-31); MEAN CORPUSCULAR HGB CONC 32 % (32-36); MEAN CORPUSCULAR VOLUME 81 fL (79.0-98.0); MONOCYTES # (AUTO) 0.8 K/uL (0.0-1.0); MONOCYTES % (AUTO) 9.3 % (1.7-9.3); NEUTROPHILS % (AUTO) 84.1 % (40.0-70.0); PLATELET COUNT (AUTO) 186 K/uL (130-430); RED BLOOD CELL COUNT(AUTO) 4.69 MIL/uL (4.2-6.2); RED CELL DISTRIBUTION WIDTH 21.1 % (9.0-15.0); WHITE BLOOD COUNT (AUTO) 8.3 K/uL (4.8-10.8)
[2021-05-17 16:03] LABS: ANION GAP -1 (5-15); CALCIUM 9.2 mg/dL (8.4-11.0); CHLORIDE 100 mmol/L (98-107); CREATININE 1.04 mg/dL (0.55-1.30); GLUCOSE 174 mg/dL (70-99); POTASSIUM 4.8 mmol/L (3.5-5.1); SODIUM SERUM 132 mmol/L (136-145); UREA NITROGEN, BLOOD 20 mg/dL (8-21)
[2021-05-17 16:04] LABS: INR 2.7 (0.80-1.20); PROTHROMBIN TIME 27.8 SECS (9.5-12.5)
[2021-05-17 16:11] LABS: ALANINE AMINOTRANSFERASE 24 U/L (12-78); ALBUMIN 3.2 g/dL (3.4-4.8); ASPARTATE AMINOTRANSFERASE 20 U/L (10-37)
[2021-05-17] MEDS ORDERED: cefTRIAXone 1 GM IVPB PREMIX 50 ML IV ONE (16:30)
[2021-05-17] MEDS ORDERED: AZITHROMYCIN 250 MG TABLET PO ONE (16:30)
[2021-05-17] MEDS ORDERED: FUROSEMIDE 40 MG/4 ML VIAL IVP ONE (16:30)
[2021-05-17 17:08] VITALS: BP_SYST 149
[2021-05-17] MEDS ORDERED: ALBUTEROL SULFATE 0.083% 2.5 MG/3 ML VIAL.NEB INH PRN (17:15)
[2021-05-17] MEDS ORDERED: IPRATROPIUM BROM 0.5 MG/2.5 ML VIAL.NEB (ATROVENT) INH PRN (17:15)
[2021-05-17] MEDS ORDERED: LOVASTATIN 20 MG TABLET PO SCH (18:00)
[2021-05-17 21:30] VITALS: BP_SYST 160
[2021-05-17] MEDS: ATORVASTATIN 10 MG TABLET PO SCH (22:22)
[2021-05-17] MEDS: DOXAZOSIN MESYLATE 2 MG TABLET PO SCH (22:25)
[2021-05-17] MEDS: CARVEDILOL 25 MG TABLET (COREG) PO SCH (22:26)
[2021-05-18] VITALS: BP_SYST 152
[2021-05-18] MEDS: ALBUTEROL SULFATE 0.083% 2.5 MG/3 ML VIAL.NEB INH SCH ×5 (03:53→20:11)
[2021-05-18] MEDS: IPRATROPIUM BROM 0.5 MG/2.5 ML VIAL.NEB (ATROVENT) INH SCH ×5 (03:53→20:11)
[2021-05-18] MEDS: FINASTERIDE 5 MG TABLET (PROSCAR) PO SCH (08:25)
[2021-05-18] MEDS: CARVEDILOL 25 MG TABLET (COREG) PO SCH (08:25)
[2021-05-18 08:26] VITALS: BP_SYST 144
[2021-05-18] MEDS: LOSARTAN POTASSIUM 50 MG TABLET (COZAAR) PO SCH (08:26)
[2021-05-18] MEDS: AMIODARONE HCL 200 MG TABLET PO SCH (08:26)
[2021-05-18] MEDS ORDERED: WARFARIN SODIUM 4 MG TABLET PO SCH (09:00)
[2021-05-18] MEDS ORDERED: WARFARIN SODIUM 3 MG TABLET PO SCH (09:00)
[2021-05-18] MEDS ORDERED: FUROSEMIDE 40 MG/4 ML VIAL IVP SCH ×2 (10:00→10:15)
[2021-05-18] MEDS ORDERED: BUMEX 1 MG/4 ML VIAL IVP ONE (11:30)
[2021-05-18] MEDS: ISOSORBIDE DINITRATE 20 MG TABLET (ISORDIL) PO SCH ×3 (11:52→21:03)
[2021-05-18 12:00] VITALS: BP_SYST 141
[2021-05-18] MEDS: ATORVASTATIN 10 MG TABLET PO SCH (17:28)
[2021-05-18 17:34] VITALS: BP_SYST 133
[2021-05-18 18:13] LABS: INR 2.8 (0.80-1.20); PROTHROMBIN TIME 28.5 SECS (9.5-12.5)
[2021-05-18 20:00] VITALS: BP_SYST 125
[2021-05-18] MEDS ORDERED: CARVEDILOL 6.25 MG TABLET (COREG) PO SCH (21:00)
[2021-05-18] MEDS: BUMEX 1 MG/4 ML VIAL IVP SCH (21:02)
[2021-05-18] MEDS: hydrALAZINE HCL 25 MG TABLET PO SCH (21:03)
[2021-05-18] MEDS: DOXAZOSIN MESYLATE 2 MG TABLET PO SCH (21:04)
[2021-05-18] MEDS: NYSTATIN 15 GM TOPICAL POWDER TP SCH (21:07)
[2021-05-19 00:09] VITALS: BP_SYST 133
[2021-05-19] MEDS: ALBUTEROL SULFATE 0.083% 2.5 MG/3 ML VIAL.NEB INH SCH ×4 (07:12→19:31)
[2021-05-19] MEDS: IPRATROPIUM BROM 0.5 MG/2.5 ML VIAL.NEB (ATROVENT) INH SCH ×4 (07:13→19:31)
[2021-05-19 08:08] LABS: INR 2.5 (0.80-1.20); PROTHROMBIN TIME 25.1 SECS (9.5-12.5)
[2021-05-19 08:12] VITALS: BP_SYST 124
[2021-05-19] MEDS: NYSTATIN 15 GM TOPICAL POWDER TP SCH ×2 (09:00→20:53)
[2021-05-19] MEDS ORDERED: CARVEDILOL 6.25 MG TABLET (COREG) PO ONE (09:00)
[2021-05-19] MEDS: BUMEX 1 MG/4 ML VIAL IVP SCH ×2 (09:36→20:53)
[2021-05-19] MEDS: ISOSORBIDE DINITRATE 20 MG TABLET (ISORDIL) PO SCH ×3 (09:37→20:50)
[2021-05-19] MEDS: FINASTERIDE 5 MG TABLET (PROSCAR) PO SCH (09:38)
[2021-05-19] MEDS: AMIODARONE HCL 200 MG TABLET PO SCH (09:38)
[2021-05-19] MEDS: hydrALAZINE HCL 25 MG TABLET PO SCH ×2 (09:38→20:52)
[2021-05-19] MEDS: LOSARTAN POTASSIUM 50 MG TABLET (COZAAR) PO SCH (09:40)
[2021-05-19 11:22] VITALS: BP_SYST 124
[2021-05-19 15:26] VITALS: BP_SYST 135
[2021-05-19] MEDS ORDERED: WARFARIN SODIUM 4 MG TABLET PO SCH (18:00)
[2021-05-19] MEDS: ATORVASTATIN 10 MG TABLET PO SCH (18:00)
[2021-05-19] MEDS: CARVEDILOL 6.25 MG TABLET (COREG) PO SCH (20:51)
[2021-05-19] MEDS: DOXAZOSIN MESYLATE 2 MG TABLET PO SCH (20:52)
[2021-05-20 00:33] VITALS: BP_SYST 127
[2021-05-20] MEDS: IPRATROPIUM BROM 0.5 MG/2.5 ML VIAL.NEB (ATROVENT) INH SCH ×5 (07:13→23:00)
[2021-05-20] MEDS: ALBUTEROL SULFATE 0.083% 2.5 MG/3 ML VIAL.NEB INH SCH ×5 (07:13→23:00)
[2021-05-20 07:44] LABS: ANION GAP 3 (5-15); CALCIUM 8.3 mg/dL (8.4-11.0); CHLORIDE 103 mmol/L (98-107); CREATININE 1.03 mg/dL (0.55-1.30); GLUCOSE 127 mg/dL (70-99); POTASSIUM 4.4 mmol/L (3.5-5.1); SODIUM SERUM 142 mmol/L (136-145); UREA NITROGEN, BLOOD 20 mg/dL (8-21)
[2021-05-20 07:50] LABS: INR 1.9 (0.80-1.20); PROTHROMBIN TIME 20.1 SECS (9.5-12.5)
[2021-05-20 07:59] VITALS: BP_SYST 153
[2021-05-20] MEDS: BUMEX 1 MG/4 ML VIAL IVP SCH (08:59)
[2021-05-20] MEDS: LOSARTAN POTASSIUM 50 MG TABLET (COZAAR) PO SCH (09:02)
[2021-05-20] MEDS: FINASTERIDE 5 MG TABLET (PROSCAR) PO SCH (09:03)
[2021-05-20] MEDS: CARVEDILOL 6.25 MG TABLET (COREG) PO SCH ×2 (09:03→21:33)
[2021-05-20] MEDS: AMIODARONE HCL 200 MG TABLET PO SCH (09:04)
[2021-05-20] MEDS: hydrALAZINE HCL 25 MG TABLET PO SCH ×2 (09:04→21:34)
[2021-05-20] MEDS: ISOSORBIDE DINITRATE 20 MG TABLET (ISORDIL) PO SCH ×3 (09:04→21:33)
[2021-05-20] MEDS: NYSTATIN 15 GM TOPICAL POWDER TP SCH ×2 (09:05→21:51)
[2021-05-20 11:25] VITALS: BP_SYST 141
[2021-05-20 15:28] VITALS: BP_SYST 130
[2021-05-20] MEDS: ATORVASTATIN 10 MG TABLET PO SCH (17:34)
[2021-05-20] MEDS ORDERED: WARFARIN SODIUM 5 MG TABLET PO SCH (18:00)
[2021-05-20] MEDS: FUROSEMIDE 40 MG/4 ML VIAL IVP SCH (21:33)
[2021-05-20] MEDS: DOXAZOSIN MESYLATE 2 MG TABLET PO SCH (21:38)
[2021-05-21] MEDS: ALBUTEROL SULFATE 0.083% 2.5 MG/3 ML VIAL.NEB INH SCH ×5 (03:00→19:34)
[2021-05-21] MEDS: IPRATROPIUM BROM 0.5 MG/2.5 ML VIAL.NEB (ATROVENT) INH SCH ×5 (03:00→19:35)
[2021-05-21 08:00] VITALS: BP_SYST 115
[2021-05-21 08:23] LABS: PROTHROMBIN TIME 20.2 SECS (9.5-12.5)
[2021-05-21] MEDS: FINASTERIDE 5 MG TABLET (PROSCAR) PO SCH ×2 (09:00→14:14)
[2021-05-21] MEDS: AMIODARONE HCL 200 MG TABLET PO SCH (09:39)
[2021-05-21] MEDS: FUROSEMIDE 40 MG/4 ML VIAL IVP SCH ×2 (09:39→20:47)
[2021-05-21] MEDS: hydrALAZINE HCL 25 MG TABLET PO SCH ×2 (09:40→20:46)
[2021-05-21] MEDS: CARVEDILOL 6.25 MG TABLET (COREG) PO SCH ×2 (09:40→20:45)
[2021-05-21] MEDS: ISOSORBIDE DINITRATE 20 MG TABLET (ISORDIL) PO SCH ×3 (09:41→20:46)
[2021-05-21] MEDS: LOSARTAN POTASSIUM 50 MG TABLET (COZAAR) PO SCH (09:41)
[2021-05-21] MEDS: NYSTATIN 15 GM TOPICAL POWDER TP SCH ×2 (09:52→20:47)
[2021-05-21] MEDS ORDERED: PHYTONADIONE Non-Formulary 5 MG TABLET PO ONE (10:00)
[2021-05-21 11:24] VITALS: BP_SYST 154
[2021-05-21] MEDS: cefTRIAXone 1 GM IVPB PREMIX 50 ML IV SCH (13:12)
[2021-05-21] MEDS ORDERED: PHYTONADIONE (Vitamin K) Oral Solution PO ONE (13:45)
[2021-05-21 15:35] VITALS: BP_SYST 145
[2021-05-21] MEDS: ATORVASTATIN 10 MG TABLET PO SCH (17:34)
[2021-05-21 19:00] VITALS: BP_SYST 125
[2021-05-21 19:20] VITALS: BP_SYST 117
[2021-05-21] MEDS: DOXAZOSIN MESYLATE 2 MG TABLET PO SCH (20:46)
[2021-05-22] VITALS (13 sets, daily range): BP systolic 109–162
[2021-05-22 01:29] LABS: HEMATOCRIT 33.6 % (36-54); HEMOGLOBIN 10.5 g/dL (14.0-18.0)
[2021-05-22 03:57] LABS: INR 1.6 (0.80-1.20)
[2021-05-22] MEDS: ALBUTEROL SULFATE 0.083% 2.5 MG/3 ML VIAL.NEB INH SCH ×5 (07:24→23:00)
[2021-05-22] MEDS: IPRATROPIUM BROM 0.5 MG/2.5 ML VIAL.NEB (ATROVENT) INH SCH ×5 (07:24→23:00)
[2021-05-22 07:55] LABS: INR 1.7 (0.80-1.20); PROTHROMBIN TIME 17.2 SECS (9.5-12.5)
[2021-05-22] MEDS: AMIODARONE HCL 200 MG TABLET PO SCH (09:00)
[2021-05-22] MEDS: ISOSORBIDE DINITRATE 20 MG TABLET (ISORDIL) PO SCH ×3 (09:00→22:31)
[2021-05-22] MEDS: hydrALAZINE HCL 25 MG TABLET PO SCH ×2 (09:00→22:34)
[2021-05-22] MEDS: NYSTATIN 15 GM TOPICAL POWDER TP SCH ×2 (09:00→21:00)
[2021-05-22] MEDS: LOSARTAN POTASSIUM 50 MG TABLET (COZAAR) PO SCH (09:00)
[2021-05-22] MEDS: FINASTERIDE 5 MG TABLET (PROSCAR) PO SCH (09:00)
[2021-05-22] MEDS: FUROSEMIDE 40 MG/4 ML VIAL IVP SCH ×2 (09:00→22:30)
[2021-05-22] MEDS: CARVEDILOL 6.25 MG TABLET (COREG) PO SCH ×2 (09:00→22:33)
[2021-05-22] MEDS ORDERED: FUROSEMIDE 40 MG/4 ML VIAL IVP ONE (10:15)
[2021-05-22] MEDS ORDERED: NS 1000 ML IV.SOLN IV ONE (10:15)
[2021-05-22] MEDS ORDERED: MIDAZOLAM HCL 5 MG/5 ML VIAL IVP ONE (10:15)
[2021-05-22] MEDS ORDERED: ceFAZolin SODIUM 1 GM VIAL IV ONE (10:15)
[2021-05-22 10:27] LABS: BILIRUBIN,URINE NEGATIVE (NEGATIVE); BLOOD, URINE NEGATIVE (NEGATIVE); CLARITY/URINE CLEAR (CLEAR); COLOR,URINE YELLOW (YELLOW); GLUCOSE,URINE TRACE (NEGATIVE); KETONES,URINE NEGATIVE (NEGATIVE); LEUKOCYTE ESTERASE ,URINE NEGATIVE (NEGATIVE); NITRITE, URINE NEGATIVE (NEGATIVE); PH,URINE 5.5 (5.0-8.0); PROTEIN URINE 3+ (NEGATIVE)
[2021-05-22] MEDS: cefTRIAXone 1 GM IVPB PREMIX 50 ML IV SCH (11:00)
[2021-05-22] MEDS ORDERED: fentaNYL CITRATE/PF 100 MCG/2 ML AMP IVP PRN ×2 (11:30)
[2021-05-22] MEDS ORDERED: ONDANSETRON HCL 4 MG/2 ML VIAL IVP PRN (11:30)
[2021-05-22] MEDS ORDERED: METOCLOPRAMIDE HCL 10 MG/2 ML VIAL IVP PRN (11:30)
[2021-05-22 12:45] LABS: BACTERIA,URINE None Seen /HPF (None Seen); RBC,URINE 0-3 /HPF (0-3); WBC,URINE NONE SEEN /HPF (0-3)
[2021-05-22] MEDS: ATORVASTATIN 10 MG TABLET PO SCH (18:00)
[2021-05-22] MEDS: DOXAZOSIN MESYLATE 2 MG TABLET PO SCH (22:32)
[2021-05-23] VITALS (25 sets, daily range): BP systolic 107–152
[2021-05-23] MEDS ORDERED: ZOLPIDEM TARTRATE 5 MG TABLET PO PRN (00:45)
[2021-05-23] MEDS ORDERED: ZOLPIDEM TARTRATE 5 MG TABLET ONE (00:51)
[2021-05-23] MEDS: ALBUTEROL SULFATE 0.083% 2.5 MG/3 ML VIAL.NEB INH SCH ×6 (03:00→23:00)
[2021-05-23] MEDS: IPRATROPIUM BROM 0.5 MG/2.5 ML VIAL.NEB (ATROVENT) INH SCH ×6 (03:00→23:00)
[2021-05-23 06:40] LABS: INR 1.4 (0.80-1.20); PROTHROMBIN TIME 14.4 SECS (9.5-12.5)
[2021-05-23] MEDS: FUROSEMIDE 40 MG/4 ML VIAL IVP SCH ×2 (09:23→20:15)
[2021-05-23] MEDS: LOSARTAN POTASSIUM 50 MG TABLET (COZAAR) PO SCH (09:24)
[2021-05-23] MEDS: ISOSORBIDE DINITRATE 20 MG TABLET (ISORDIL) PO SCH ×3 (09:25→22:32)
[2021-05-23] MEDS: hydrALAZINE HCL 25 MG TABLET PO SCH ×2 (09:25→22:32)
[2021-05-23] MEDS: AMIODARONE HCL 200 MG TABLET PO SCH (09:26)
[2021-05-23] MEDS: NYSTATIN 15 GM TOPICAL POWDER TP SCH ×2 (09:27→22:33)
[2021-05-23] MEDS: CARVEDILOL 6.25 MG TABLET (COREG) PO SCH ×2 (10:35→20:17)
[2021-05-23] MEDS: FINASTERIDE 5 MG TABLET (PROSCAR) PO SCH (10:35)
[2021-05-23] MEDS ORDERED: APIXABAN 2.5 MG TABLET PO ONE (11:15)
[2021-05-23] MEDS: cefTRIAXone 1 GM IVPB PREMIX 50 ML IV SCH (11:39)
[2021-05-23] MEDS: ATORVASTATIN 10 MG TABLET PO SCH (18:13)
[2021-05-23] MEDS: DOXAZOSIN MESYLATE 2 MG TABLET PO SCH (20:16)
[2021-05-23] MEDS: APIXABAN 2.5 MG TABLET PO SCH (20:18)
[2021-05-24] VITALS (12 sets, daily range): BP systolic 118–159
[2021-05-24] MEDS: IPRATROPIUM BROM 0.5 MG/2.5 ML VIAL.NEB (ATROVENT) INH SCH ×5 (03:00→20:34)
[2021-05-24] MEDS: ALBUTEROL SULFATE 0.083% 2.5 MG/3 ML VIAL.NEB INH SCH ×5 (03:00→20:33)
[2021-05-24 06:21] LABS: BASOPHILS % (AUTO) 0.2 % (0.0-2.0); EOSINOPHILS % (AUTO) 0.3 % (0.0-4.0); HEMATOCRIT 37.5 % (36-54); HEMOGLOBIN 11.6 g/dL (14.0-18.0); LYMPHOCYTES # (AUTO) 0.6 K/uL (1.0-5.5); LYMPHOCYTES % (AUTO) 9.9 % (20.5-51.5); MEAN CORPUSCULAR HEMOGLOBIN 26 pg (27-31); MEAN CORPUSCULAR HGB CONC 31 % (32-36); MEAN CORPUSCULAR VOLUME 83 fL (79.0-98.0); MONOCYTES # (AUTO) 0.8 K/uL (0.0-1.0); MONOCYTES % (AUTO) 14.6 % (1.7-9.3); NEUTROPHILS # (AUTO) 4.3 K/uL (1.8-7.7); PLATELET COUNT (AUTO) 140 K/uL (130-430); RED CELL DISTRIBUTION WIDTH 19.6 % (9.0-15.0); WHITE BLOOD COUNT (AUTO) 5.7 K/uL (4.8-10.8)
[2021-05-24 07:00] LABS: INR 1.4 (0.80-1.20); PROTHROMBIN TIME 14.7 SECS (9.5-12.5)
[2021-05-24 07:15] LABS: CALCIUM 8.8 mg/dL (8.4-11.0); CHLORIDE 100 mmol/L (98-107); CREATININE 0.96 mg/dL (0.55-1.30); GLUCOSE 155 mg/dL (70-99); PHOSPHORUS 2.7 mg/dL (2.7-4.5); POTASSIUM 4.5 mmol/L (3.5-5.1); SODIUM SERUM 141 mmol/L (136-145); UREA NITROGEN, BLOOD 27 mg/dL (8-21)
[2021-05-24] MEDS ORDERED: FUROSEMIDE 40 MG/4 ML VIAL IVP ONE (08:15)
[2021-05-24] MEDS: FUROSEMIDE 40 MG/4 ML VIAL IVP SCH ×2 (08:22→20:49)
[2021-05-24] MEDS: LOSARTAN POTASSIUM 50 MG TABLET (COZAAR) PO SCH (08:24)
[2021-05-24] MEDS: FINASTERIDE 5 MG TABLET (PROSCAR) PO SCH (08:26)
[2021-05-24] MEDS: NYSTATIN 15 GM TOPICAL POWDER TP SCH ×2 (08:26→21:00)
[2021-05-24 08:48] LABS: ANION GAP 0 (5-15)
[2021-05-24] MEDS ORDERED: SPIRONOLACTONE 25 MG TABLET (ALDACTONE) PO SCH (09:00)
[2021-05-24] MEDS: ISOSORBIDE DINITRATE 20 MG TABLET (ISORDIL) PO SCH ×3 (09:10→20:50)
[2021-05-24] MEDS: hydrALAZINE HCL 25 MG TABLET PO SCH ×2 (09:11→20:51)
[2021-05-24] MEDS: APIXABAN 2.5 MG TABLET PO SCH ×2 (09:12→20:51)
[2021-05-24] MEDS: CARVEDILOL 12.5 MG TABLET (COREG) PO SCH ×2 (09:51→20:50)
[2021-05-24] MEDS: cefTRIAXone 1 GM IVPB PREMIX 50 ML IV SCH (12:55)
[2021-05-24] MEDS: ATORVASTATIN 10 MG TABLET PO SCH (17:36)
[2021-05-24] MEDS: DOXAZOSIN MESYLATE 2 MG TABLET PO SCH (20:50)
[2021-05-25] VITALS: BP_SYST 157
[2021-05-25] MEDS: IPRATROPIUM BROM 0.5 MG/2.5 ML VIAL.NEB (ATROVENT) INH SCH ×3 (07:18→15:00)
[2021-05-25] MEDS: ALBUTEROL SULFATE 0.083% 2.5 MG/3 ML VIAL.NEB INH SCH ×3 (07:18→15:00)
[2021-05-25 07:42] LABS: INR 1.4 (0.80-1.20); PROTHROMBIN TIME 14.6 SECS (9.5-12.5)
[2021-05-25 08:00] VITALS: BP_SYST 164
[2021-05-25] MEDS: FINASTERIDE 5 MG TABLET (PROSCAR) PO SCH (08:20)
[2021-05-25] MEDS: CARVEDILOL 12.5 MG TABLET (COREG) PO SCH (08:20)
[2021-05-25] MEDS: LOSARTAN POTASSIUM 50 MG TABLET (COZAAR) PO SCH (08:20)
[2021-05-25] MEDS: APIXABAN 2.5 MG TABLET PO SCH (08:22)
[2021-05-25] MEDS: ISOSORBIDE DINITRATE 20 MG TABLET (ISORDIL) PO SCH ×2 (08:24→15:00)
[2021-05-25] MEDS: hydrALAZINE HCL 25 MG TABLET PO SCH (08:24)
[2021-05-25] MEDS: NYSTATIN 15 GM TOPICAL POWDER TP SCH (08:43)
[2021-05-25] MEDS ORDERED: FUROSEMIDE 40 MG TABLET PO SCH (09:00)
[2021-05-25] MEDS ORDERED: SPIRONOLACTONE 25 MG TABLET (ALDACTONE) PO SCH (09:00)
[2021-05-25 09:41] VITALS: BP_SYST 164
[2021-05-25] MEDS: cefTRIAXone 1 GM IVPB PREMIX 50 ML IV SCH (11:00)
[2021-05-25 12:18] VITALS: BP_SYST 160
[2021-05-25 16:01] VITALS: BP_SYST 159
[2021-05-25] MEDS: ATORVASTATIN 10 MG TABLET PO SCH (18:00)
== END 2021-05-25 18:05 | disposition hospice, home (50) | DRG 258 ==
LOC: SED 14:05 → STU 16:38 → SIC 05-22 14:01 → STU 05-24 18:55
PROVIDERS: ADMIT Internal Medicine Hospice and Palliative Medicine; ATTEND Internal Medicine Hospice and Palliative Medicine
PROC: 0JH606Z Insertion of Pacemaker, Dual Chamber into Chest Subcutaneous Tissue and Fascia, Open Approach (ICD-10-PCS; principal; 2021-05-17)
PROC: 0JPT0PZ Removal of Cardiac Rhythm Related Device from Trunk Subcutaneous Tissue and Fascia, Open Approach (ICD-10-PCS; 2021-05-17)
PROC: 30233K1 Transfusion of Nonautologous Frozen Plasma into Peripheral Vein, Percutaneous Approach (ICD-10-PCS; 2021-05-21)
PROC: 5A09357 Assistance with Respiratory Ventilation, Less than 24 Consecutive Hours, Continuous Positive Airway Pressure (ICD-10-PCS; 2021-05-24)
DX: I13.0 Hypertensive heart and chronic kidney disease with heart failure and stage 1 through stage 4 chronic kidney disease, or unspecified chronic kidney disease (principal); J96.21 Acute and chronic respiratory failure with hypoxia; J18.9 Pneumonia, unspecified organism; I50.23 Acute on chronic systolic (congestive) heart failure; T69.022A Immersion foot, left foot, initial encounter; T69.021A Immersion foot, right foot, initial encounter; I48.21 Permanent atrial fibrillation; J44.1 Chronic obstructive pulmonary disease with (acute) exacerbation; E87.1 Hypo-osmolality and hyponatremia; Z20.822 Contact with and (suspected) exposure to COVID-19; I16.0 Hypertensive urgency; E11.22 Type 2 diabetes mellitus with diabetic chronic kidney disease; N18.9 Chronic kidney disease, unspecified; I27.20 Pulmonary hypertension, unspecified; Z87.891 Personal history of nicotine dependence; Z79.01 Long term (current) use of anticoagulants; Z79.899 Other long term (current) drug therapy
CPT/HCPCS: 36415; 71045; 80048; 80053; 81000; 82962; 83051; 83735; 83880; 84100; 84484; 85014; 85025; 85049-TC; 85384; 85610-TC; 85730-TC; 86886; 86900; 86901; 87081; 88300; 93005; 93306; 94640; 94660; 94760; 96365; 96375; 97110-GP; 97116-GP; 97530-GP; 99285; G0378; J0690; J0696; J1940; J2250; J3430; J3490; J7030; J7613; P9059; Q0144

== ENCOUNTER 2022-11-23 11:48 | Emergency (ER) | payer OTHER ==
[~2022-11-23] VITALS: Ht 172.7 cm; Wt 85.3 kg
[~2022-11-23 11:48] MED LIST changes: +AMIO100T4 PO; -AMPI1VIA IJ; +ASCO500T20 PO; +CARV25TA55 PO; +DOXA8TAB2 PO; +FINA5TAB3 PO; +FURO-150 PO; +LOSA100T4 PO; +LOVA20TA2 PO; +METF-518 PO; +MULT400T7 PO; +POTA-197 PO; +TAMS-11 PO; +WARF3TAB59 PO
[2022-11-23 12:01] VITALS: BP_SYST 141
[2022-11-23 12:23] LABS: BASOPHILS % (AUTO) 0.3 % (0.0-2.0); EOSINOPHILS # (AUTO) 0.1 K/uL (0.0-0.4); EOSINOPHILS % (AUTO) 0.9 % (0.0-4.0); HEMATOCRIT 26.7 % (36-54); HEMOGLOBIN 9.1 g/dL (14.0-18.0); LYMPHOCYTES # (AUTO) 1.4 K/uL (1.0-5.5); LYMPHOCYTES % (AUTO) 19.4 % (20.5-51.5); MEAN CORPUSCULAR HEMOGLOBIN 31 pg (27-31); MEAN CORPUSCULAR HGB CONC 34 % (32-36); MEAN CORPUSCULAR VOLUME 90 fL (79.0-98.0); MONOCYTES # (AUTO) 0.7 K/uL (0.0-1.0); MONOCYTES % (AUTO) 9.3 % (1.7-9.3); NEUTROPHILS # (AUTO) 5.1 K/uL (1.8-7.7); NEUTROPHILS % (AUTO) 70.1 % (40.0-70.0); PLATELET COUNT (AUTO) 192 K/uL (130-430); RED BLOOD CELL COUNT(AUTO) 2.95 MIL/uL (4.2-6.2); RED CELL DISTRIBUTION WIDTH 14.8 % (9.0-15.0); WHITE BLOOD COUNT (AUTO) 7.3 K/uL (4.8-10.8)
[2022-11-23 12:36] LABS: ANION GAP 7 (5-15); CALCIUM 8.7 mg/dL (8.4-11.0); CHLORIDE 98 mmol/L (98-107); CREATININE 2.38 mg/dL (0.55-1.30); GLUCOSE 195 mg/dL (70-99); UREA NITROGEN, BLOOD 46 mg/dL (8-21)
[2022-11-23 12:41] LABS: INR 1.1 (0.80-1.20); PROTHROMBIN TIME 11.5 SECS (9.5-12.5)
[2022-11-23 12:49] LABS: ALANINE AMINOTRANSFERASE 17 U/L (12-78); ALBUMIN 3.4 g/dL (3.4-4.8); ASPARTATE AMINOTRANSFERASE 16 U/L (10-37); TOTAL BILIRUBIN 0.4 mg/dL (0.0-1.0)
[2022-11-23 14:27] VITALS: BP_SYST 141
== END 2022-11-23 14:26 | disposition home or self-care (01) ==
LOC: SED 11:48
DX: C43.30 Malignant melanoma of unspecified part of face (principal); D64.9 Anemia, unspecified; R42 Dizziness and giddiness; R53.1 Weakness; R06.02 Shortness of breath; E11.9 Type 2 diabetes mellitus without complications; I10 Essential (primary) hypertension; Z79.899 Other long term (current) drug therapy
CPT/HCPCS: 36415; 80053; 85025; 85610-TC; 85730-TC; 86886; 86900; 86901; 99283

== ENCOUNTER 2022-11-28 16:59 | Inpatient (IN) | payer OTHER ==
[~2022-11-28] VITALS: Ht 172.7 cm; Wt 85.7 kg
--- NOTE | 2022-11-28 17:00 | NUR ---
Patient to ER bed 06 to gown for evaluation. Side rails up.
[2022-11-28 17:12] VITALS: BP_SYST 124; PULSE 81; RESP 18; TEMP 98.5; O2SAT 100
--- NOTE | 2022-11-28 17:37 | NUR ---
Patient brought into room 6 by . Patienty had IV started by RN and urine and blood, blood cultures sent to the lab at this time.
[2022-11-28 17:38] LABS: BILIRUBIN,URINE NEGATIVE (NEGATIVE); BLOOD, URINE NEGATIVE (NEGATIVE); CLARITY/URINE CLEAR (CLEAR); COLOR,URINE YELLOW (YELLOW); GLUCOSE,URINE NEGATIVE (NEGATIVE); KETONES,URINE NEGATIVE (NEGATIVE); LEUKOCYTE ESTERASE ,URINE NEGATIVE (NEGATIVE); NITRITE, URINE NEGATIVE (NEGATIVE); PROTEIN URINE NEGATIVE (NEGATIVE); UROBILINOGEN,URINE 0.2 (0.2-1.0)
[2022-11-28 17:53] LABS: HEMOGLOBIN 7.5 g/dL (14.0-18.0); MEAN CORPUSCULAR HEMOGLOBIN 32 pg (27-31); MEAN CORPUSCULAR HGB CONC 35 % (32-36); MEAN CORPUSCULAR VOLUME 92 fL (79.0-98.0); PLATELET COUNT (AUTO) 222 K/uL (130-430); RED BLOOD CELL COUNT(AUTO) 2.34 MIL/uL (4.2-6.2); RED CELL DISTRIBUTION WIDTH 15.4 % (9.0-15.0); WHITE BLOOD COUNT (AUTO) 9.9 K/uL (4.8-10.8)
[2022-11-28 17:57] LABS: HEMATOCRIT 21.5 % (36-54)
[2022-11-28 18:10] LABS: ALANINE AMINOTRANSFERASE 20 U/L (12-78); ALBUMIN 3.3 g/dL (3.4-4.8); ANION GAP 7 (5-15); ASPARTATE AMINOTRANSFERASE 26 U/L (10-37); CALCIUM 8.4 mg/dL (8.4-11.0); CHLORIDE 98 mmol/L (98-107); CREATININE 2.18 mg/dL (0.55-1.30); GLUCOSE 225 mg/dL (70-99); TOTAL BILIRUBIN 0.4 mg/dL (0.0-1.0); UREA NITROGEN, BLOOD 42 mg/dL (8-21)
[2022-11-28 18:11] LABS: BAND % (MANUAL) 3 % (0-6); BASOPHILS % (MANUAL) 0 % (0-2); EOSINOPHILS % (MANUAL) 0 % (0-7); LYMPHOCYTES % (MANUAL) 14 % (20-46); METAMYELOCYTES % 1 % (0-0); MONOCYTES % (MANUAL) 9 % (0-11)
--- NOTE | 2022-11-28 18:31 | NUR ---
PATIENT SLEEPING IN BED AND HAS SIGNED THE CONSENT FOR BLOOD TRANSFUSION.
--- NOTE | 2022-11-28 18:56 | NUR ---
Packed Red Bllod Cells ordered in lab. Consent and forms delivered in Blood bank. Awaiting foir type and crossmatch.
--- NOTE | 2022-11-28 19:00 | NUR ---
Received verbal report from outgoing nurse SHERRI Cuello. Received pt awake and alert with family at bedside. No s/s of discomfort noted. Assisted pt with using urinal and changed pt into hospital gown. Safety measures in place.
--- NOTE | 2022-11-28 19:28 | NUR ---
Admit bed requested Patient will be admitted to care of [[facility]]. Admitted to [Medsurg] unit. Diagnosis [Anemia] Inpatient (Yes or No) [Yes] Observation (Yes or No) [No] Orientation concerns or request close to nursing station (Yes or No) [No] Covid Status [] On vent or bipap [n/a] Isolation requirements [n/a] Needs a sitter [n/a] From Home (Yes or if No enter name of facility) [yes] Requires Dialysis (Yes or No) [No] Med Rec Completed (Yes of No) []
--- NOTE | 2022-11-28 20:40 | NUR ---
20g IV patent and intact, no s/s of infiltration noted. Began first liter of blood. Safety precautions in place.
[2022-11-28] MEDS ORDERED: CARV12.548 PO (21:14)
[2022-11-28] MEDS ORDERED: FURO-149 PO (21:14)
[2022-11-28] MEDS ORDERED: SPIR25TA6 PO (21:14)
[2022-11-28] MEDS ORDERED: TAMS-11 PO (21:14)
[2022-11-28] MEDS ORDERED: FERR220S6 PO (21:14)
[2022-11-28] MEDS ORDERED: MULT1TAB64 PO (21:14)
[2022-11-28] MEDS ORDERED: ASCO500T20 PO (21:14)
--- NOTE | 2022-11-28 21:14 | NUR ---
Medication reconciliation completed with information provided by patient . Any prior medication reconciliation on file was reviewed and corrected.
--- NOTE | 2022-11-28 22:18 | NUR ---
Patient will be admitted to care of [facility] . Admitted to Med Surg unit. Will go to room 102A. Belongings list completed. Complete and up to date summary report printed. SBAR report to be given at bedside with opportunity for questions.
[2022-11-28 22:33] VITALS: BP_SYST 116; PULSE 72; RESP 16; TEMP 97.9
--- NOTE | 2022-11-28 22:33 | NUR ---
Received report from EVAN Millan. Pt is awake in bed, alert and oriented x4. VSS on room air. IV intact and infusing first unit PRBC. Pt admitted for anemia, right face melanoma and stated he had fall. Pt fell on left side and has open wound on IZZY. Pictures taken of IZZY and right face. Pt denies any pain. Call light within reach. Safety precautions enforced. Will admit pt and continue to monitor. 2345: First unit PRBC completed. VSS. Called blood bank for second unit, blood bank tech is on break will follow up. Addendum: 11/29/22 at 0047 by [facility], SHERRI RN 0030: Second PRBC started. VSS on room air. Assisted pt with urinal. Will reassess VS in 15 min. 0045: VSS on room air. No adverse reactions noted. Call light within reach.
[2022-11-28 23:22] VITALS: O2SAT 98
[2022-11-28 23:45] VITALS: BP_SYST 112; PULSE 69; RESP 17; TEMP 97.2; O2SAT 97
[2022-11-29] VITALS (7 sets, daily range): BP systolic 110–126; PULSE 70–74; RESP 16–18; TEMP 97–98; O2SAT 96–100
--- NOTE | 2022-11-29 03:55 | NUR ---
Pt completed second unit PRBC. No adverse reactions noted. VSS on room air. Pt laying comfortably in bed. Will continue to monitor.
[2022-11-29 06:35] LABS: BASOPHILS % (AUTO) 0.4 % (0.0-2.0); EOSINOPHILS # (AUTO) 0.1 K/uL (0.0-0.4); HEMATOCRIT 26.5 % (36-54); LYMPHOCYTES # (AUTO) 1.2 K/uL (1.0-5.5); LYMPHOCYTES % (AUTO) 15.6 % (20.5-51.5); MEAN CORPUSCULAR HEMOGLOBIN 31 pg (27-31); MEAN CORPUSCULAR HGB CONC 34 % (32-36); MEAN CORPUSCULAR VOLUME 90 fL (79.0-98.0); MONOCYTES # (AUTO) 1.1 K/uL (0.0-1.0); MONOCYTES % (AUTO) 13.2 % (1.7-9.3); NEUTROPHILS # (AUTO) 5.6 K/uL (1.8-7.7); PLATELET COUNT (AUTO) 176 K/uL (130-430); RED BLOOD CELL COUNT(AUTO) 2.95 MIL/uL (4.2-6.2); RED CELL DISTRIBUTION WIDTH 15.5 % (9.0-15.0)
[2022-11-29 06:50] LABS: ANION GAP 8 (5-15); CALCIUM 7.8 mg/dL (8.4-11.0); CHLORIDE 104 mmol/L (98-107); CREATININE 1.76 mg/dL (0.55-1.30); GLUCOSE 117 mg/dL (70-99); UREA NITROGEN, BLOOD 35 mg/dL (8-21)
--- NOTE | 2022-11-29 06:52 | NUR ---
Closing note. Pt eyes closed laying comfortably in bed. IV intact. On room air. No new complaints or distress noted. Call light within reach. Safety precautions enforced. All needs met. Will endorse to day shift nurse.
[2022-11-29 07:11] LABS: NEUTROPHILS % (AUTO) 69.8 % (40.0-70.0)
[2022-11-29] MEDS ORDERED: NALOXONE HCL 0.4 MG/ML AMP (NARCAN) IVP PRN ×2 (09:00)
[2022-11-29] MEDS ORDERED: ONDANSETRON HCL 4 MG/2 ML VIAL IVP PRN (09:00)
[2022-11-29] MEDS ORDERED: LORazepam 2 MG/ML VIAL IVP PRN (09:00)
[2022-11-29] MEDS ORDERED: HYDROcodone/ACETAMIN 5-325 MG TAB (NORCO/ VICODIN) PO PRN (09:00)
--- NOTE | 2022-11-29 09:22 | NUR ---
CONSULTATION PAGED/CALLED Reason for Consultation: JOAQUIN Person Who was Notified: KYLIE Consulting Physician: DR ROTHMAN/ DR GABRIEL Planning Engineer Specialty: NEPHRO Ordering Physician: Bob MCINTYRE
[2022-11-29] MEDS: TAMSULOSIN HCL 0.4 MG CAP PO SCH (11:05)
[2022-11-29] MEDS: FINASTERIDE 5 MG TABLET (PROSCAR) PO SCH (11:05)
[2022-11-29] MEDS: FUROSEMIDE 40 MG TABLET PO SCH ×2 (11:06→20:55)
[2022-11-29] MEDS: ASCORBIC ACID 500 MG TABLET PO SCH (11:06)
[2022-11-29] MEDS: CARVEDILOL 12.5 MG TABLET (COREG) PO SCH ×2 (11:07→20:56)
[2022-11-29] MEDS: SPIRONOLACTONE 25 MG TABLET (ALDACTONE) PO SCH (11:07)
[2022-11-29] MEDS: D5/0.45 NS 1,000 ML IV SCH ×2 (11:14→20:57)
[2022-11-29] MEDS: ACETAMINOPHEN 325 MG TABLET PO PRN (11:14)
--- NOTE | 2022-11-29 12:19 | NUR ---
DR Bob ROCK AT BEDSIDE SPEAKING WITH FAMILY AND ANSWERING ALL QUESTIONS FROM DAUGHTER CARLENE
--- NOTE | 2022-11-29 15:31 | NUR ---
WOUND EVALUATION: Wound Consult received from Dr. Addison Marcano. Thank you, Dr. Marcano, for the consult. Patient received in a Ovidio Bed with a mattress, awake, alert, and oriented. Patient is unable to turn independently. Villa Score is a 17. Past Medical History: Cardiac disorders, COPD, Diabetes Mellitus, Hypertension, Pacemaker implant, Atrial Fibrillation, Malignant Melanoma (Right Lateral Face), CHF. Patient came to the emergency department for uncontrolled bleeding from the right side of his face surrounding his Malignant Melanoma. He states he has been admitted for blood transfusions secondary to this issue in the past. Recent Labs: WBC 8.0, RBC 2.95, hemoglobin 8.0, hematocrit 26.5, BUN 35, creatinine 1.76, glucose 117, calcium 7.8, alkaline phosphatase 117.5, serum total protein 6.2, albumin 3.3. Microbiology: Blood culture results x2 in progress. Patient received 1 unit of packed red blood cells on 11/28/22 and a second unit of packed red blood cells on 11/29/22. Intrinsic factors that delay wound healing: COPD, Diabetes Mellitus, Atrial Fibrillation, Malignant Melanoma, Hypoalbuminemia, Hyperglycemia, Anemia related to bleeding. Extrinsic factors that delay wound healing: Decreased mobility. Wound Assessment: 1. Right Lateral Face: Large black mass (probable Malignant Melanoma), present on admission. Wound bed has large growth tissue, black in color, firm. No odor, moderate sanguineous/dark red sanguineous drainage from inferior aspect of wound. Zhane-wound intact. Measures 7.7 cm x 6.5 cm. Recommend: Cleanse wound with normal saline. Pat dry around wound bed. Cover wound with 2 calcium alginate dressings, then one box of 4x4 gauze, then ABD pad. Secure site with hair net and folded pillowcase from behind head to bilateral facial area, and paper tape over hair net, pillowcase, and under chin; Use paper tape sparingly on face. Perform wound care daily, and as needed for dressing soiling or dislodgement. Also recommend: Encourage and assist patient as needed with repositioning every 2 hours with pillow support and off-load pressure areas with pillows for pressure re-distribution. Offload, elevate and float bilateral heels with pillows. Perform skin care and monitor skin integrity Q shift. Use moisture barrier cream on buttocks and other moisture susceptible areas QID and as needed for soiling.
[2022-11-29] MEDS ORDERED: LOVASTATIN 20 MG TABLET PO SCH (18:00)
[2022-11-29] MEDS: ATORVASTATIN 10 MG TABLET PO SCH (18:36)
[2022-11-29] MEDS: HYDROcodone/ACETAMIN 10-325 MG TAB PO PRN (20:55)
--- NOTE | 2022-11-29 23:36 | NUR ---
ASSESSMENT COMPLETED PLAN OF CARE REVIEWED NO DISTRESSS AT THIS TIME MEDICATED FOR PAIN ORDERED WILL CONTINUE TO MONITOR AND ASSESS
[2022-11-30] VITALS: BP_SYST 118; PULSE 70; RESP 18; TEMP 97.9; O2SAT 98
[2022-11-30 06:08] LABS: BASOPHILS % (AUTO) 0.2 % (0.0-2.0); EOSINOPHILS # (AUTO) 0.1 K/uL (0.0-0.4); EOSINOPHILS % (AUTO) 1.1 % (0.0-4.0); HEMATOCRIT 25.1 % (36-54); HEMOGLOBIN 8.5 g/dL (14.0-18.0); LYMPHOCYTES # (AUTO) 1.2 K/uL (1.0-5.5); LYMPHOCYTES % (AUTO) 15.2 % (20.5-51.5); MEAN CORPUSCULAR HEMOGLOBIN 31 pg (27-31); MEAN CORPUSCULAR HGB CONC 34 % (32-36); MEAN CORPUSCULAR VOLUME 90 fL (79.0-98.0); MONOCYTES # (AUTO) 1.2 K/uL (0.0-1.0); MONOCYTES % (AUTO) 14.7 % (1.7-9.3); NEUTROPHILS # (AUTO) 5.5 K/uL (1.8-7.7); NEUTROPHILS % (AUTO) 68.8 % (40.0-70.0); PLATELET COUNT (AUTO) 171 K/uL (130-430); RED BLOOD CELL COUNT(AUTO) 2.77 MIL/uL (4.2-6.2); WHITE BLOOD COUNT (AUTO) 7.9 K/uL (4.8-10.8)
[2022-11-30] MEDS: D5/0.45 NS 1,000 ML IV SCH ×3 (06:16→21:59)
[2022-11-30 06:37] LABS: ANION GAP 7 (5-15); CALCIUM 7.7 mg/dL (8.4-11.0); CHLORIDE 103 mmol/L (98-107); CREATININE 1.72 mg/dL (0.55-1.30); GLUCOSE 143 mg/dL (70-99); PHOSPHORUS 3.3 mg/dL (2.7-4.5); UREA NITROGEN, BLOOD 27 mg/dL (8-21)
--- NOTE | 2022-11-30 07:31 | NUR ---
ALL NEEDS ANTICIPATED AND MET NO SIGNIFICANT CHANGES CARE ENDORSED TO LICENSED NURSE
--- NOTE | 2022-11-30 07:40 | NUR ---
Opening Nurse Notes: Patient laying in bed. A/O x 4, Albanian speaking. Patient breathing even on room air. No pain, no distress, no SOB. Bed is locked in lowest position. Call light within reach, all needs met, will continue with plan of care.
[2022-11-30 08:08] VITALS: BP_SYST 128; PULSE 73; RESP 14; TEMP 97.7; O2SAT 100
[2022-11-30 08:15] VITALS: O2SAT 100
[2022-11-30] MEDS: ACETAMINOPHEN 325 MG TABLET PO PRN (08:54)
[2022-11-30] MEDS: MULTIVITS,CA,MINERALS/IRON/FA 1 TABLET PO SCH (08:59)
[2022-11-30] MEDS: CARVEDILOL 12.5 MG TABLET (COREG) PO SCH ×2 (08:59→21:51)
[2022-11-30] MEDS: FUROSEMIDE 40 MG TABLET PO SCH (08:59)
[2022-11-30] MEDS: FINASTERIDE 5 MG TABLET (PROSCAR) PO SCH (08:59)
[2022-11-30] MEDS: ASCORBIC ACID 500 MG TABLET PO SCH (08:59)
[2022-11-30] MEDS: FERROUS SULFATE 325 MG TABLET.DR PO SCH (08:59)
[2022-11-30] MEDS: TAMSULOSIN HCL 0.4 MG CAP PO SCH (08:59)
[2022-11-30] MEDS: SPIRONOLACTONE 25 MG TABLET (ALDACTONE) PO SCH (09:00)
--- NOTE | 2022-11-30 11:30 | NUR ---
Nurse Notes: Granddaughter Gloria would like Dr. Marcano to call her. Her number is on patient's wall board. Patient's family is discussing possibility of transferring patient to [facility]. I spoke with Case Management and provided phone number with insurance for possible transfer to [place]. Will wait for further instructions.
--- NOTE | 2022-11-30 12:15 | NUR ---
Afternoon Nurse Notes: Patient in bed in stable condition. Patient on room air. No pain, moderate distress, no SOB. Bed is locked in lowest position. Call light within reach, all needs met, will continue with plan of care.
[2022-11-30 12:41] VITALS: BP_SYST 120; PULSE 72; RESP 17; TEMP 97.4; O2SAT 97
--- NOTE | 2022-11-30 14:20 | NUR ---
Paged Dr. Cyndie Marcano Nurse Notes: Dr. Cyndie Marcano ordered an Xray of patient's right foot due to swelling and pain. Advised of possible DVT concern or broken toes due to previous fall (which is why patient was admitted).
--- NOTE | 2022-11-30 16:00 | NUR ---
Nurse Notes: Wound care completed. Addendum: 11/30/22 at 1743 by Billy Cabral LVN Pictures taken and filed in medical record.
--- NOTE | 2022-11-30 16:15 | NUR ---
Late Noon Nurse Notes: Patient laying in bed. No pain, no distress, no SOB. Bed is locked in lowest position. Call light within reach, all needs met, will continue with plan of care.
[2022-11-30 16:25] VITALS: BP_SYST 127; PULSE 74; RESP 16; TEMP 97.5; O2SAT 99
[2022-11-30] MEDS: ATORVASTATIN 10 MG TABLET PO SCH (17:54)
--- NOTE | 2022-11-30 18:40 | NUR ---
Closing Nurse Notes: Patient stable, A/O x4, Belarusian speaking. Patient breathing even and unlabored on room air. No pain, no distress, no SOB. Bed is locked in lowest position. Call light within reach, all needs met, will endorse to the night shift supervisor nurse.
--- NOTE | 2022-11-30 19:46 | NUR ---
Granddaughter Gloria would like to speak with Dr. Marcano regarding pt condition or updates. [place] number is
[2022-11-30 20:00] VITALS: BP_SYST 137; PULSE 71; RESP 17; TEMP 97.5; O2SAT 99
[2022-11-30] MEDS ORDERED: D5W 1,000 ML IV PRN (20:00)
[2022-11-30] MEDS ORDERED: GLUCOSE (DEXTROSE) ORAL GEL -Adults PO PRN (20:00)
[2022-11-30] MEDS ORDERED: DEXTROSE 50% JECT 50 ML DISP.SYRIN IVP PRN (20:00)
[2022-11-30] MEDS ORDERED: MELATONIN 5 MG TABLET PO PRN (21:00)
[2022-11-30] MEDS: INSULIN REGULAR, HUMAN 100 UNITS/ML, 3 ML VIAL (humuLIN R) SUBCUT PRN (21:56)
[2022-12-01 00:09] VITALS: BP_SYST 116; PULSE 73; RESP 17; TEMP 97.6; O2SAT 100
[2022-12-01 08:18] VITALS: BP_SYST 100; PULSE 72; RESP 19; TEMP 97.5; O2SAT 100
[2022-12-01] MEDS: SPIRONOLACTONE 25 MG TABLET (ALDACTONE) PO SCH (09:00)
[2022-12-01] MEDS: CARVEDILOL 12.5 MG TABLET (COREG) PO SCH ×2 (09:00→21:08)
[2022-12-01] MEDS: MULTIVITS,CA,MINERALS/IRON/FA 1 TABLET PO SCH (09:31)
[2022-12-01] MEDS: ASCORBIC ACID 500 MG TABLET PO SCH (09:31)
[2022-12-01] MEDS: FINASTERIDE 5 MG TABLET (PROSCAR) PO SCH (09:31)
[2022-12-01] MEDS: TAMSULOSIN HCL 0.4 MG CAP PO SCH (09:32)
[2022-12-01] MEDS: FERROUS SULFATE 325 MG TABLET.DR PO SCH (09:32)
[2022-12-01] MEDS: D5/0.45 NS 1,000 ML IV SCH ×2 (09:37→20:18)
[2022-12-01 11:36] VITALS: BP_SYST 110; BP_SYST 152; PULSE 70; RESP 19; TEMP 97.8; O2SAT 99
[2022-12-01] MEDS: INSULIN REGULAR, HUMAN 100 UNITS/ML, 3 ML VIAL (humuLIN R) SUBCUT PRN ×3 (11:36→21:18)
[2022-12-01] MEDS: HYDROcodone/ACETAMIN 10-325 MG TAB PO PRN (14:11)
--- NOTE | 2022-12-01 14:51 | NUR ---
PHYSICAL THERAPY CO-SIGN The Physical Therapy Progress Notes documented by Electric Motor Winders Assembler have been reviewed. Reviewed/Co-Signed by: Valdemar Meza Documentation Done by:ELAINA GIBSON Addendum: 12/01/22 at 1452 by Valdemar Meza PT Amended: Links added.
[2022-12-01 15:46] VITALS: BP_SYST 120; PULSE 72; RESP 18; TEMP 97.3; O2SAT 100
[2022-12-01] MEDS: ATORVASTATIN 10 MG TABLET PO SCH (17:26)
--- NOTE | 2022-12-01 18:51 | NUR ---
Dietitian Recommendations * Cardiac, CCHO diet * Snacks BID between meals * Adhere to pt food preferences * Consider Suplena BID if PO intakes decline and ONS is warranted LP, MS, RD Please refer to Nutrition Assessment for details. Addendum: 12/01/22 at [address] Amended: Links added. Addendum: 12/01/22 at [address] CORRECTION: Dietitian Recommendations * Cardiac, CCHO diet, Justino BID (supplement yields 180 kcal/day, 5 gm protein/day) * Snacks BID between meals * Adhere to pt food preferences * Consider Suplena BID if PO intakes decline and ONS is warranted LP, MS, RD Please refer to Nutrition Assessment for details.
[2022-12-01 20:00] VITALS: BP_SYST 120; PULSE 70; RESP 17; TEMP 97.5; O2SAT 100
[2022-12-01] MEDS: ACETAMINOPHEN 325 MG TABLET PO PRN (20:17)
[2022-12-02 00:36] VITALS: BP_SYST 111; PULSE 68; RESP 18; TEMP 98.1; O2SAT 100
[2022-12-02 00:39] VITALS: O2SAT 100
[2022-12-02 05:27] LABS: BASOPHILS % (AUTO) 0.3 % (0.0-2.0); EOSINOPHILS # (AUTO) 0.1 K/uL (0.0-0.4); EOSINOPHILS % (AUTO) 1.5 % (0.0-4.0); HEMATOCRIT 23.4 % (36-54); HEMOGLOBIN 7.9 g/dL (14.0-18.0); LYMPHOCYTES # (AUTO) 1.1 K/uL (1.0-5.5); LYMPHOCYTES % (AUTO) 14.6 % (20.5-51.5); MEAN CORPUSCULAR HEMOGLOBIN 31 pg (27-31); MEAN CORPUSCULAR HGB CONC 34 % (32-36); MEAN CORPUSCULAR VOLUME 90 fL (79.0-98.0); MONOCYTES # (AUTO) 1.1 K/uL (0.0-1.0); MONOCYTES % (AUTO) 14.6 % (1.7-9.3); NEUTROPHILS # (AUTO) 5.1 K/uL (1.8-7.7); PLATELET COUNT (AUTO) 161 K/uL (130-430); RED BLOOD CELL COUNT(AUTO) 2.59 MIL/uL (4.2-6.2); RED CELL DISTRIBUTION WIDTH 15.8 % (9.0-15.0); WHITE BLOOD COUNT (AUTO) 7.4 K/uL (4.8-10.8)
[2022-12-02 05:51] LABS: ALANINE AMINOTRANSFERASE 9 U/L (12-78); ALBUMIN 2.4 g/dL (3.4-4.8); ANION GAP 4 (5-15); ASPARTATE AMINOTRANSFERASE 21 U/L (10-37); CALCIUM 7.9 mg/dL (8.4-11.0); CHLORIDE 100 mmol/L (98-107); CREATININE 1.53 mg/dL (0.55-1.30); GLUCOSE 133 mg/dL (70-99); PHOSPHORUS 3.5 mg/dL (2.7-4.5); TOTAL BILIRUBIN 0.5 mg/dL (0.0-1.0); UREA NITROGEN, BLOOD 21 mg/dL (8-21)
[2022-12-02] MEDS: D5/0.45 NS 1,000 ML IV SCH ×2 (06:19→15:34)
[2022-12-02 08:24] VITALS: BP_SYST 112; PULSE 72; RESP 20; TEMP 97.2; O2SAT 100
[2022-12-02] MEDS: FERROUS SULFATE 325 MG TABLET.DR PO SCH (08:38)
[2022-12-02] MEDS: MULTIVITS,CA,MINERALS/IRON/FA 1 TABLET PO SCH (08:38)
[2022-12-02] MEDS: ASCORBIC ACID 500 MG TABLET PO SCH (08:39)
[2022-12-02] MEDS: SPIRONOLACTONE 25 MG TABLET (ALDACTONE) PO SCH (08:39)
[2022-12-02] MEDS: TAMSULOSIN HCL 0.4 MG CAP PO SCH (08:39)
[2022-12-02] MEDS: FINASTERIDE 5 MG TABLET (PROSCAR) PO SCH (08:39)
[2022-12-02] MEDS: CARVEDILOL 12.5 MG TABLET (COREG) PO SCH (08:40)
[2022-12-02] MEDS ORDERED: DOCUSATE SODIUM 100 MG CAPSULE PO PRN (09:15)
[2022-12-02] MEDS: ACETAMINOPHEN 325 MG TABLET PO PRN (09:43)
[2022-12-02 11:24] VITALS: BP_SYST 144; PULSE 74; RESP 16; TEMP 96.3; O2SAT 100
[2022-12-02] MEDS: INSULIN REGULAR, HUMAN 100 UNITS/ML, 3 ML VIAL (humuLIN R) SUBCUT PRN ×2 (11:36→17:59)
[2022-12-02] MEDS ORDERED: NORMAL SALINE 5 ML DISP.SYRIN IVF SCH (14:00)
--- NOTE | 2022-12-02 14:14 | NUR ---
PHYSICAL THERAPY CO-SIGN The Physical Therapy Progress Notes documented by Fluoroscope Operator have been reviewed. Reviewed/Co-Signed by: Don Ramos Documentation Done by:ELAINA GIBSON Addendum: 12/02/22 at 1414 by Don Ramos PT Amended: Links added.
[2022-12-02 15:00] VITALS: BP_SYST 123; PULSE 72; RESP 16; TEMP 97.3; O2SAT 98
[2022-12-02] MEDS ORDERED: PSYLLIUM HUSK 1 PKT PACKET PO SCH (15:00)
--- NOTE | 2022-12-02 17:37 | NUR ---
Call placed to [facility] at [phone], gave report to nurse Mignon POLANCO. No concerns voiced.
[2022-12-02 17:41] VITALS: BP_SYST 123; PULSE 72; RESP 18; TEMP 97.3; O2SAT 98
[2022-12-02] MEDS: ATORVASTATIN 10 MG TABLET PO SCH (17:58)
[2022-12-02] MEDS ORDERED: FERROUS SULFATE 325 MG TABLET.DR PO SCH (21:00)
== END 2022-12-02 18:45 | DRG 811 ==
LOC: SED 16:59 → SMU 18:55
PROVIDERS: ADMIT Preventive Medicine Preventive Medicine/Occupational Environmental Medicine; ATTEND Preventive Medicine Preventive Medicine/Occupational Environmental Medicine
PROC: 30233N1 Transfusion of Nonautologous Red Blood Cells into Peripheral Vein, Percutaneous Approach (ICD-10-PCS; principal; 2022-11-28)
DX: D62 Acute posthemorrhagic anemia (principal); N17.0 Acute kidney failure with tubular necrosis; E87.1 Hypo-osmolality and hyponatremia; I13.0 Hypertensive heart and chronic kidney disease with heart failure and stage 1 through stage 4 chronic kidney disease, or unspecified chronic kidney disease; E44.1 Mild protein-calorie malnutrition; C43.30 Malignant melanoma of unspecified part of face; E86.0 Dehydration; E83.41 Hypermagnesemia; E83.51 Hypocalcemia; E11.65 Type 2 diabetes mellitus with hyperglycemia; Z68.28 Body mass index [BMI] 28.0-28.9, adult; E87.5 Hyperkalemia; N18.31 Chronic kidney disease, stage 3a; E11.22 Type 2 diabetes mellitus with diabetic chronic kidney disease; E88.09 Other disorders of plasma-protein metabolism, not elsewhere classified; I25.10 Atherosclerotic heart disease of native coronary artery without angina pectoris; I48.91 Unspecified atrial fibrillation; I50.9 Heart failure, unspecified; J44.9 Chronic obstructive pulmonary disease, unspecified; M19.071 Primary osteoarthritis, right ankle and foot; Z85.820 Personal history of malignant melanoma of skin
CPT/HCPCS: 36415; 73564; 76770; 80048; 80053; 81003; 82272; 82962; 83605; 83735; 84100; 85007; 85025; 85027; 86886; 86900; 86901; 86920; 87040; 97110-GP; 97112-GP; 97530-GP; 99285; J1815; P9021

== ENCOUNTER 2022-12-05 20:40 | Emergency (ER) | payer OTHER ==
[~2022-12-05] VITALS: Ht 172.7 cm; Wt 86.6 kg
[~2022-12-05 20:40] MED LIST changes: -ALBU2.5V7 INH; -AMIO100T4 PO; -ASCO500C18 PO; +CARV12.548 PO; -CARV25TA55 PO; -DOXA8TAB2 PO; +FERR220S6 PO; +FURO-149 PO; -FURO-150 PO; -LOSA100T4 PO; -METF-518 PO; +MULT1TAB64 PO; -MULT400T7 PO; -POTA-197 PO; -ROCPM1 IV; +SPIR25TA6 PO; -WARF3TAB59 PO; -WARF4TAB72 PO
[2022-12-05 20:47] VITALS: BP_SYST 135
--- NOTE | 2022-12-05 20:47 | NUR ---
Triaged and placed patient to ER AMB BAY for evaluation. Bed placed in lowest position with side rails up. Instructed to notify ED staff for any changes in condition or worsening of symptoms while waiting to be seen by a provider. Patient verbalized understanding.
--- NOTE | 2022-12-05 21:52 | NUR ---
Patient placed in ER BED 3 for evaluation. Bed in lowest position with siderails up. Report given to JORDAN POLANCO for continuity of care. Instructed to notify ED staff for any changes in condition or worsening of symptoms. Patient verbalized understanding.
--- NOTE | 2022-12-05 21:53 | NUR ---
Dr. UMANA at bedside examining the patient.
--- NOTE | 2022-12-05 22:10 | NUR ---
FIRST CONTACT WITH PT. ASSESSMENT COMPLETED. AWAITING EAL AND ORDERS.
[2022-12-05 22:18] LABS: BASOPHILS % (AUTO) 0.6 % (0.0-2.0); EOSINOPHILS # (AUTO) 0.1 K/uL (0.0-0.4); EOSINOPHILS % (AUTO) 1.2 % (0.0-4.0); HEMATOCRIT 22.3 % (36-54); HEMOGLOBIN 7.6 g/dL (14.0-18.0); LYMPHOCYTES # (AUTO) 0.9 K/uL (1.0-5.5); LYMPHOCYTES % (AUTO) 14.9 % (20.5-51.5); MEAN CORPUSCULAR HEMOGLOBIN 30 pg (27-31); MEAN CORPUSCULAR HGB CONC 34 % (32-36); MEAN CORPUSCULAR VOLUME 89 fL (79.0-98.0); MONOCYTES # (AUTO) 0.8 K/uL (0.0-1.0); MONOCYTES % (AUTO) 12.2 % (1.7-9.3); NEUTROPHILS # (AUTO) 4.5 K/uL (1.8-7.7); NEUTROPHILS % (AUTO) 71.1 % (40.0-70.0); PLATELET COUNT (AUTO) 225 K/uL (130-430); RED BLOOD CELL COUNT(AUTO) 2.49 MIL/uL (4.2-6.2); RED CELL DISTRIBUTION WIDTH 15.2 % (9.0-15.0); WHITE BLOOD COUNT (AUTO) 6.3 K/uL (4.8-10.8)
[2022-12-05 22:27] LABS: ANION GAP 5 (5-15); CALCIUM 8.7 mg/dL (8.4-11.0); CHLORIDE 102 mmol/L (98-107); CREATININE 1.59 mg/dL (0.55-1.30); GLUCOSE 201 mg/dL (70-99); UREA NITROGEN, BLOOD 29 mg/dL (8-21)
[2022-12-05] MEDS ORDERED: ACETAMINOPHEN 500 MG TABLET PO ONE (22:30)
[2022-12-05 22:32] LABS: ALANINE AMINOTRANSFERASE 40 U/L (12-78); ALBUMIN 2.4 g/dL (3.4-4.8); ASPARTATE AMINOTRANSFERASE 36 U/L (10-37); TOTAL BILIRUBIN 0.3 mg/dL (0.0-1.0)
--- NOTE | 2022-12-06 01:02 | NUR ---
BLOOD VERIFIED WITH SHERRI DOTSON AND STARTED PER ORDER.
[2022-12-06] MEDS ORDERED: GABAPENTIN 100 MG CAPSULE PO ONE (02:15)
[2022-12-06] MEDS ORDERED: BACLOFEN 10 MG TABLET PO ONE (02:15)
--- NOTE | 2022-12-06 03:44 | NUR ---
FIRST UNIT OF PRBC COMPLETED AND SECOND UNIT VERIFIED AND STARTED.
--- NOTE | 2022-12-06 05:30 | NUR ---
PT RESTING WITH NO ACUTE DISTRESS.
[2022-12-06 05:38] LABS: HEMATOCRIT 29.4 % (36-54); HEMOGLOBIN 9.6 g/dL (14.0-18.0)
--- NOTE | 2022-12-06 07:25 | NUR ---
RECIVED PT FROM JORDAN. PT IN BED 3 VSS ON THE MONITOR, AOX4 WITH NO COMPLAINS OF PAIN. PT DENIES SOB, N/V/D AND ON THE MONITOR. PT IS AFEBRIL. PT IS ON 2L OF NC.
--- NOTE | 2022-12-06 08:25 | NUR ---
DRESSING CHANGED ON PT WITH A PETROLEUM DRESSING ALONG WITH STERIL 4X4 AND NON ADHESIVE TAPE. PT TOLERATED WELL.
--- NOTE | 2022-12-06 09:20 | NUR ---
URINAL EMPTYED 300 ML
--- NOTE | 2022-12-06 11:14 | NUR ---
Patient given written and verbal discharge instructions and verbalizes understanding. ER MD discussed with patient the results and treatment provided. Patient in stable condition. ID arm band removed. IV catheter removed intact and dressing applied, no active bleeding. Patient educated on pain management and to follow up with PMD. Pain Scale ZERO OUT OF TEN. Opportunity for questions provided and answered. DISCHARGE fact sheet provided.
[2022-12-06 11:19] VITALS: BP_SYST 149
== END 2022-12-06 11:14 | disposition home or self-care (01) ==
LOC: SED 20:40
DX: D64.9 Anemia, unspecified (principal); N17.9 Acute kidney failure, unspecified; J44.9 Chronic obstructive pulmonary disease, unspecified; E11.9 Type 2 diabetes mellitus without complications; I10 Essential (primary) hypertension; Z85.820 Personal history of malignant melanoma of skin; Z79.899 Other long term (current) drug therapy
CPT/HCPCS: 99285; 80053; 85025; 86886; 86900; 86901; 86920; 36415; 85018; P9021

== ENCOUNTER 2022-12-21 18:07 | Emergency (ER) | payer OTHER ==
[~2022-12-21] VITALS: Ht 172.7 cm; Wt 86.6 kg
[2022-12-21 18:08] VITALS: BP_SYST 147
--- NOTE | 2022-12-21 18:10 | NUR ---
ASSISTED OUT OF THE CAR TO WHEELCHAIR, PLACED IN BED #6 AND TRIAGED. REPORT GIVEN TO JASKARAN
--- NOTE | 2022-12-21 18:15 | NUR ---
Pt brought by ambulance, A&Ox4, pt presents to ER with weakness and mild SOB , pt has Hx of anemia and melanoma on R face /oozing noted, pt scheduled to remove melanoma , pt placed on 2 L NC due to O2 92%, skin is pale, VSS, will cont to monitor.
[2022-12-21 19:03] LABS: ANION GAP 10 (5-15); CALCIUM 8.2 mg/dL (8.4-11.0); CHLORIDE 101 mmol/L (98-107); CREATININE 1.26 mg/dL (0.55-1.30); GLUCOSE 141 mg/dL (70-99); UREA NITROGEN, BLOOD 19 mg/dL (8-21)
[2022-12-21 19:08] LABS: ALANINE AMINOTRANSFERASE 17 U/L (12-78); ALBUMIN 3.1 g/dL (3.4-4.8); ASPARTATE AMINOTRANSFERASE 29 U/L (10-37); TOTAL BILIRUBIN 0.6 mg/dL (0.0-1.0)
[2022-12-21 19:10] LABS: BASOPHILS % (AUTO) 0.4 % (0.0-2.0); EOSINOPHILS % (AUTO) 0.2 % (0.0-4.0); HEMATOCRIT 27.1 % (36-54); LYMPHOCYTES # (AUTO) 0.8 K/uL (1.0-5.5); LYMPHOCYTES % (AUTO) 7.9 % (20.5-51.5); MEAN CORPUSCULAR HEMOGLOBIN 29 pg (27-31); MEAN CORPUSCULAR HGB CONC 33 % (32-36); MEAN CORPUSCULAR VOLUME 88 fL (79.0-98.0); MONOCYTES # (AUTO) 1.3 K/uL (0.0-1.0); MONOCYTES % (AUTO) 12.9 % (1.7-9.3); NEUTROPHILS # (AUTO) 7.6 K/uL (1.8-7.7); NEUTROPHILS % (AUTO) 78.6 % (40.0-70.0); PLATELET COUNT (AUTO) 220 K/uL (130-430); RED BLOOD CELL COUNT(AUTO) 3.07 MIL/uL (4.2-6.2); RED CELL DISTRIBUTION WIDTH 15.4 % (9.0-15.0); WHITE BLOOD COUNT (AUTO) 9.7 K/uL (4.8-10.8)
--- NOTE | 2022-12-21 19:10 | NUR ---
Report given to Liliam POLANCO
[2022-12-21] MEDS ORDERED: predniSONE 20 MG TABLET PO ONE (19:30)
[2022-12-21] MEDS ORDERED: ALBUTEROL SULFATE 0.083% 2.5 MG/3 ML VIAL.NEB INH ONE (19:30)
[2022-12-21] MEDS ORDERED: IPRATROPIUM BROM 0.5 MG/2.5 ML VIAL.NEB (ATROVENT) INH ONE (19:30)
[2022-12-21] MEDS ORDERED: PRED20TA PO (20:31)
[2022-12-21 20:46] VITALS: BP_SYST 144
--- NOTE | 2022-12-21 20:48 | NUR ---
Patient given written and verbal discharge instructions and verbalizes understanding. ER MD discussed with patient the results and treatment provided. Patient in stable condition. ID arm band removed. IV catheter removed intact and dressing applied, no active bleeding. Rx of PREDNISONE given. Patient educated on pain management and to follow up with PMD. Pain Scale 0/10. Opportunity for questions provided and answered. Medication side effect fact sheet provided.
== END 2022-12-21 18:10 | disposition home or self-care (01) ==
LOC: SED 18:07
DX: J44.1 Chronic obstructive pulmonary disease with (acute) exacerbation (principal); R53.1 Weakness; R42 Dizziness and giddiness; E11.9 Type 2 diabetes mellitus without complications; I10 Essential (primary) hypertension; Z79.899 Other long term (current) drug therapy
CPT/HCPCS: 80053; 83880; 85025; 86886; 86900; 86901; 84484; 36415; 93005; 71045; 94640; 99285; J7512; J7613

== ENCOUNTER 2023-01-15 12:28 | Emergency (ER) | payer OTHER ==
[~2023-01-15] VITALS: Ht 172.7 cm; Wt 83.5 kg
[~2023-01-15 12:28] MED LIST changes: +PRED20TA PO
--- NOTE | 2023-01-15 12:44 | NUR ---
Placed in room 2 . Placed on airplane patrol pilot, blood pressure machine and pulse oximeter. To gown for exam. Side rails up. Report given to SHERRI BARAKAT.
--- NOTE | 2023-01-15 12:44 | NUR ---
RECEIVED PT FROM SHERRI PRASAD. PT BIB GRANDDAUGHTER FOR C/O SOB SINCE THIS MORNING. RESP SHALLOW WITH TACHYPENIA AND EXPIRATORY WHEEZE. PT ON HOME O2 2LPM N/C. 02 SAT 97%. TELEMONITOR SHOWS SINUS ANNMARIE HR JUMBING 30-80BPM. DENIES N/V/D/C. DISTAL PULSES WEAK. PT HAS BLE 2+ EDEMA. SKIN CDI. DENIES PAIN.
[2023-01-15] MEDS ORDERED: IPRATROPIUM BROM 0.5 MG/2.5 ML VIAL.NEB (ATROVENT) INH ONE (12:45)
[2023-01-15] MEDS ORDERED: predniSONE 20 MG TABLET PO ONE (12:45)
[2023-01-15] MEDS ORDERED: ALBUTEROL SULFATE 0.083% 2.5 MG/3 ML VIAL.NEB INH ONE (12:45)
--- NOTE | 2023-01-15 12:45 | NUR ---
DR. CLAY AT BEDSIDE TO ASSESS PT.
[2023-01-15 12:48] VITALS: BP_SYST 163; PULSE 33; RESP 16; TEMP 97.8; O2SAT 97
--- NOTE | 2023-01-15 12:48 | NUR ---
EKG OBTAINED AND TAKEN TO DR. CLAY.
--- NOTE | 2023-01-15 12:57 | NUR ---
PT RECEIVING BREATHING TX. PREDNISONE 60MG PO GIVEN.
[2023-01-15 13:15] LABS: BASOPHILS % (AUTO) 0.3 % (0.0-2.0); EOSINOPHILS # (AUTO) 0.3 K/uL (0.0-0.4); EOSINOPHILS % (AUTO) 4.7 % (0.0-4.0); HEMATOCRIT 28.1 % (36-54); HEMOGLOBIN 8.9 g/dL (14.0-18.0); LYMPHOCYTES # (AUTO) 1.2 K/uL (1.0-5.5); LYMPHOCYTES % (AUTO) 16.5 % (20.5-51.5); MEAN CORPUSCULAR HEMOGLOBIN 27 pg (27-31); MEAN CORPUSCULAR HGB CONC 32 % (32-36); MEAN CORPUSCULAR VOLUME 86 fL (79.0-98.0); MONOCYTES # (AUTO) 0.7 K/uL (0.0-1.0); MONOCYTES % (AUTO) 10.4 % (1.7-9.3); NEUTROPHILS # (AUTO) 4.7 K/uL (1.8-7.7); NEUTROPHILS % (AUTO) 68.1 % (40.0-70.0); PLATELET COUNT (AUTO) 232 K/uL (130-430); RED BLOOD CELL COUNT(AUTO) 3.28 MIL/uL (4.2-6.2); RED CELL DISTRIBUTION WIDTH 16.4 % (9.0-15.0)
[2023-01-15 13:21] LABS: ANION GAP 4 (5-15); CALCIUM 8.6 mg/dL (8.4-11.0); CHLORIDE 106 mmol/L (98-107); CREATININE 1.25 mg/dL (0.55-1.30); GLUCOSE 166 mg/dL (74-106); UREA NITROGEN, BLOOD 15 mg/dL (8-21)
[2023-01-15 13:35] LABS: ALANINE AMINOTRANSFERASE 13 U/L (12-78); ALBUMIN 2.9 g/dL (3.4-4.8); ASPARTATE AMINOTRANSFERASE 17 U/L (10-37); TOTAL BILIRUBIN 0.4 mg/dL (0.0-1.0)
--- NOTE | 2023-01-15 14:10 | NUR ---
Patient given written and verbal discharge instructions and verbalizes understanding. ER MD discussed with patient the results and treatment provided. Patient in stable condition. ID arm band removed. Patient educated on pain management and to follow up with PMD. Pain Scale 0/10. Opportunity for questions provided and answered. Medication side effect fact sheet provided.
[2023-01-15 14:37] VITALS: BP_SYST 157; PULSE 70; RESP 24; TEMP 97.8; O2SAT 97
== END 2023-01-15 14:10 | disposition home or self-care (01) ==
LOC: SED 12:28
DX: J44.9 Chronic obstructive pulmonary disease, unspecified (principal); I11.0 Hypertensive heart disease with heart failure; I50.9 Heart failure, unspecified; R06.02 Shortness of breath; E11.9 Type 2 diabetes mellitus without complications; Z79.899 Other long term (current) drug therapy; Z20.822 Contact with and (suspected) exposure to COVID-19
CPT/HCPCS: 80053; 83880; 85025; 84484; 36415; 93005; 71045; 94640; 94760; 99285; 83605; 87804 ×2; 87426; J7512; J7613

== ENCOUNTER 2023-04-03 13:29 | Emergency (ER) | payer OTHER ==
[~2023-04-03] VITALS: Ht 167.6 cm; Wt 72.6 kg
[~2023-04-03 13:29] MED LIST changes: -FERR220S6 PO; +FERR220S9 PO; +FINA-37 PO; -FINA5TAB3 PO
[2023-04-03 13:36] VITALS: BP_SYST 143; PULSE 84; RESP 20; TEMP 100.3; O2SAT 100
[2023-04-03 14:40] LABS: BASOPHILS % (AUTO) 0.2 % (0.0-2.0); EOSINOPHILS % (AUTO) 0.1 % (0.0-4.0); HEMATOCRIT 31.6 % (36-54); LYMPHOCYTES # (AUTO) 0.3 K/uL (1.0-5.5); LYMPHOCYTES % (AUTO) 4.3 % (20.5-51.5); MEAN CORPUSCULAR HEMOGLOBIN 26 pg (27-31); MEAN CORPUSCULAR HGB CONC 32 % (32-36); MEAN CORPUSCULAR VOLUME 82 fL (79.0-98.0); MONOCYTES # (AUTO) 0.5 K/uL (0.0-1.0); NEUTROPHILS # (AUTO) 5.6 K/uL (1.8-7.7); NEUTROPHILS % (AUTO) 87.4 % (40.0-70.0); PLATELET COUNT (AUTO) 114 K/uL (130-430); RED BLOOD CELL COUNT(AUTO) 3.87 MIL/uL (4.2-6.2); RED CELL DISTRIBUTION WIDTH 17.3 % (9.0-15.0); WHITE BLOOD COUNT (AUTO) 6.4 K/uL (4.8-10.8)
[2023-04-03 14:44] LABS: ACETONE, SERUM NEGATIVE (NEGATIVE)
[2023-04-03 14:47] LABS: ANION GAP 7 (5-15); CALCIUM 8.4 mg/dL (8.4-11.0); CARBON DIOXIDE 28 mmol/L (23-29); CHLORIDE 99 mmol/L (98-107); CREATININE 1.36 mg/dL (0.55-1.30); GLUCOSE 230 mg/dL (74-106); POTASSIUM 4.3 mmol/L (3.5-5.1); SODIUM SERUM 134 mmol/L (136-145); UREA NITROGEN, BLOOD 18 mg/dL (8-21)
[2023-04-03 14:54] LABS: ALANINE AMINOTRANSFERASE 23 U/L (12-78); ASPARTATE AMINOTRANSFERASE 27 U/L (10-37); CREATINE KINASE, TOTAL 51 U/L (39-308); TOTAL BILIRUBIN 0.9 mg/dL (0.0-1.0); TOTAL PROTEIN, SERUM 6.4 g/dL (6.4-8.3)
[2023-04-03 19:36] VITALS: BP_SYST 138; PULSE 80; RESP 18; TEMP 98.9; O2SAT 98
== END 2023-04-03 19:36 | disposition home or self-care (01) ==
LOC: SED 13:29
DX: R53.1 Weakness (principal); R10.9 Unspecified abdominal pain; R50.9 Fever, unspecified; J44.9 Chronic obstructive pulmonary disease, unspecified; E11.9 Type 2 diabetes mellitus without complications; I10 Essential (primary) hypertension; Z79.899 Other long term (current) drug therapy
CPT/HCPCS: 36415; 71045; 76376; 80053; 82009; 82550; 82962; 83605; 84484; 85025; 93005; 99285